=== PATIENT | female | born 1950 | race Caucasian/White ===

== ENCOUNTER 2019-12-30 08:53 | Outpatient (CLI) | payer MEDICARE, BC, SELFPAY ==
--- NOTE | 2019-12-30 09:04 | MM_ITS ---
WS: [id number] BILATERAL SCREENING DIGITAL MAMMOGRAM WITH CAD HISTORY: SCREENING COMPARISON: 12/11/2017, 11/10/2016 Bilateral CC and MLO views submitted. Computer aided detection analyzed. Breast composition: The breasts are heterogeneously dense, which may obscure small masses. No suspici ous masses, microcalcifications or architectural distortion. Numerous benign-appearing calcifications within each breast. No change in the overall parenchymal pattern. MM/[place] [id number] IMPRESSION: BI-RADS: 2-Benign FOLLOW UP: 1 Year Follow-up
== END 2019-12-30 08:54 | disposition home or self-care (01) ==
LOC: RADSHAW 09:00
PROVIDERS: Family Provider Family Medicine; PCP Family Medicine; Visit Provider Family Medicine
DX: Z12.31 Encounter for screening mammogram for malignant neoplasm of breast (principal)
CPT/HCPCS: 77067

== ENCOUNTER 2020-04-03 08:22 | Emergency (ER) | payer MEDICARE, BC, SELFPAY ==
[2020-04-03 08:23] VITALS: PULSE 94; RESP 22; TEMP 36.6; O2SAT 95; BMI 33.6
--- NOTE | 2020-04-03 08:32 | W.ED.SOB ---
HPI - SOB/Dyspnea General: Chief Complaint: Shortness of Breath/Dyspnea Stated Complaint: SOB Time Seen by Provider: 04/03/20 08:26 Source: patient Mode of arrival: ambulatory Limitations: no limitations History of Present Illness: HPI Narrative: Patient is a 70-year-old female presents to ED today with a complaint of shortness of breath. Patient initially began noticing shortness of breath approximately 2 weeks ago. She was seen at urgent care and was told that she most likely has COPD. She was placed on albuterol inhalers and steroids. Patient tells me she was improving on these medications however this morning woke up and felt very short of breath. She returned to urgent care where she was promptly referred to the emergency department for further evaluation. Patient tells me she has had a cough throughout the day that seems to worsen at night-cough is mainly nonproductive. She has not been running fevers. Patient is a former smoker and quit in 1999 (smoked for 30 years prior to that). Patient is not having any chest pains. Denies lower extremity swelling or pain. Denies orthopnea or PND. MD elicited complaint: shortness of breath Pertinent past history: COPD Onset (ago): day(s) Timing: constant Severity: moderate Exacerbating factors: exertion Relieving factors: rest Associated symptoms: Reports chest congestion; Deny abdominal pain, chest pain, fever(s), hemoptysis, lightheadedness, nausea, orthopnea, palpitations, syncope or vomiting Review of Systems General: Reports: 10 or more systems reviewed and unremarkable except in HPI and below Const: Denies: fever(s) or chills Eyes: Denies: change in vision, blurry vision, photophobia, floaters or seeing flashes ENMT: Denies: throat pain, enlarged tonsils or odynophagia Card: Reports: dyspnea on exertion; Denies: chest pain, palpitations, irregular heart rhythm, edema, swelling of feet/ankles, lightheadedness, syncope, pre-syncope, orthopnea, leg pain with exertion or acrocyanosis Resp: Reports: dyspnea, non-productive cough and chest congestion; Denies: productive cough or hemoptysis GI: Denies: abdominal pain, nausea, vomiting or diarrhea : Denies: flank pain, difficulty voiding, dysuria, urinary frequency or urinary urgency Musc: Denies: neck pain or back pain Skin/Breast: Denies: rash Neuro: Denies: headache(s), numbness in extremities, weakness in extremities or sensory changes PFSH ED PFSH: Social History Smoking and tobacco status: former smoker Physical Exam Const: COMMON NORMALS: average body habitus, patient oriented x3, no limitations, healthy appearing, alert and well nourished GENERAL APPEARANCE: cooperative and in distress (hyperventilating ) ORIENTATION/CONSCIOUSNESS: Yes oriented to person, Yes oriented to place and Yes oriented to time HENMT: COMMON NORMALS: normocephalic and atraumatic HEAD & SCALP: normocephalic and atraumatic Neck/C-Spine: COMMON NORMALS: full ROM, no lymphadenopathy and no meningeal signs Chest: COMMONS NORMALS: normal inspection of the chest and normal palpation of entire chest wall Resp: COMMON NORMALS: clear to auscultation bilaterally EFFORT & INSPECTION: Yes tachypneic AUSCULTATION: clear to auscultation bilaterally Cardio: COMMON NORMALS: regular rate and regular rhythm RATE: regular rate RHYTHM: regular rhythm GI: COMMON NORMALS: Normal to inspection, nondistended, normoactive bowel sounds present, Soft to palpation, non-tender, No hepatosplenomegaly present and no masses PALPATION: Yes Soft to palpation and Yes No hepatosplenomegaly present Extremity: COMMON NORMALS: normal to inspection, capillary refill normal, no joint enlargement, no clubbing, cyanosis or edema, no calf tenderness and no pedal edema Neuro: FLORIAN COMA SCALE: document GCS findings [place] coma scale eye opening: Spontaneous Florian coma scale verbal response: Orientated Florian coma scale motor response: Obey commands [place] coma scale total score: 15 COMMON NORMALS: patient oriented x3, CN's II-XII intact bilaterally, moves all extremities, no focal motor deficits, no sensory deficits noted and gait normal SENSORIUM/ORIENTATION: Yes alert, Yes oriented to person, Yes oriented to place and Yes oriented to time MENINGEAL SIGNS: Yes no meningeal signs Skin: COMMON NORMALS: no rashes or lesions noted GENERAL SKIN EXAM: no rashes or lesions noted Course Vital Signs: Vital signs: Vital Signs Temperature 97.8 F 04/03/20 08:23 Pulse Rate 78 04/03/20 10:19 Respiratory Rate 16 04/03/20 10:19 Blood Pressure 146/70 04/03/20 10:19 Pulse Oximetry 99 04/03/20 10:19 MDM - SOB/Dyspnea MDM Narrative: Medical decision making narrative: pt appears much better after IV solu-medrol, ativan, and a duo-nub treatment; labs are non-concerning at this time; CXR normal; ABG showing alkalosis from her hyperventilating; she is resting now in NAD with normal even respirations and no distress; I suspect majority of this was anxiety related although could have some worsening of possible COPD although she has never been officially diagnosed with this; will place her on steroids/abx and she can continue her albuterol; recommend close and prompt follow up with her PCP; return to ED precautions given Lab Data: Labs: Lab Results 04/03/20 04/03/20 04/03/20 Range/Units 08:35 08:35 08:49 WBC 12.1 H (4.0-10.0) 10^3/ uL RBC 4.32 (4.1-5.3) 10^6/u L Hgb 12.8 (11.5-15.3) g/dL Hct 39.7 (37.0-47.0) % MCV 91.9 (81-99) fL MCH 29.6 (28.0-34.0) pg MCHC 32.2 (30.0-36.0) g/dL RDW 13.7 (12.1-15.1) % Plt Count 326 (130-400) 10^3/c mm MPV 10.0 (7.4-10.4) fL Neut % (Auto) 66.4 % Lymph % (Auto) 16.3 % Gilchrist % (Auto) 7.0 % Eos % (Auto) 9.4 % Baso % (Auto) 0.7 % Neut # (Auto) 8.0 H (1.8-7.7) 10^3/u L Lymph # (Auto) 2.0 (0.8-4.8) 10^3/u L Gilchrist # (Auto) 0.8 (0.2-0.9) 10^3/u L Eos # (Auto) 1.1 H (0.0-0.8) 10^3/u L Baso # (Auto) 0.1 (0.0-0.1) 10^3/u L Nucleated RBC % (a uto) 0 % Nucleated RBCs # 0.0 /100WBC Specimen Type Arterial Sample Site Radial, left ABG pH 7.63 H* (7.35-7.45) ABG pCO2 20.9 L (35-45) mmHg ABG pO2 88.6 (80.0-100.0) mmH g ABG HCO3 21.9 L (22-26) mmol/L ABG O2 Saturation 97.3 ABG Base Excess 2.6 H (-2.0-2.0) mmol/ L Toñito Test Pos A-a O2 Gradient 30.0 H (5-10) mmHg Hematocrit 39.7 (37-47) % Hgb O2 Saturation 96.5 (95-100) % Carboxyhemoglobin 0.0 L (0.4-20.1) %THgb Methemoglobin 0.8 (0.4-1.5) % Total Hemoglobin 13.0 (12-16) g/dL Ionized Calcium 1.1 (1.1-1.4) mmol/L O2 Delivery Device None FiO2 21.0 % Front End Loader Operator ID ed Sodium 142 145.0 H (136-145) mmol/L Potassium 3.6 3.4 L (3.5-5.1) mmol/L Chloride 106 (98-107) mmol/L Carbon Dioxide 24 (22-29) mmol/L Anion Gap 15.6 (5-19) BUN 14 (8-23) mg/dL Creatinine 1.0 H (0.5-0.9) mg/dL Glucose 83 100.0 (65-115) mg/dL Calculated Osmolal ity 289 (285-295) mOsm/k g Calcium 9.4 (8.5-10.5) mg/dL Total Bilirubin 0.7 (0.15-1.2) mg/dL AST 20 (0-32) U/L ALT 17 (0-33) U/L Alkaline Phosphata se 79 (35-105) IU/L Total Protein 6.7 (6.6-8.7) g/dL Albumin 4.6 (3.5-5.2) g/dL Globulin 2.1 (1.3-4.6) g/dL Imaging Data^: CXR: Radiologist's impression: [address] [address] XRay Report Signed Patient: Paula Patel Unit #: [id number] : 1950 Age/Sex: 70 / F ADM Date: 04/03/20 Loc: ER Room/Bed: Attending Dr: Ordering Provider/Ordering MD: Jelena Jones Date of Service: 04/03/20 Procedure(s): XR chest 1V portable [id number] Accession Number(s): [id number] Report Number: [id number] PROCEDURE INFORMATION: Exam: XR Chest, 1 View Exam date and time: 04/03/2020 9:06 AM Age: 70 years old Clinical indication: Cough and shortness of breath; Additional info: Chest pain, SOB, cough x 3 weeks TECHNIQUE: Imaging protocol: XR of the chest Views: 1 view. COMPARISON: No relevant prior studies available. FINDINGS: Lungs: Lungs are well aerated without a focal area of consolidation. Pleural space: Unremarkable. No pleural effusion. No pneumothorax. Heart/Mediastinum: Unremarkable. No cardiomegaly. Bones/joints: Prior surgical fixation of the caudal aspect of the cervical spine. XR/XR chest 1V portable [id number] IMPRESSION: Lungs are well aerated without a focal area of consolidation. Dictated By: Bang Whelan MD Signed By: Bang Whelan MD Signed Date/Time: 04/03/20945 DD/ 4 Discharge Plan Discharge Patient Disposition: Home, Self-Care Clinical Impression: Hyperventilation, Bronchitis Condition: Stable Prescriptions: New Levaquin 750 mg tablet 750 mg PO DAILY 5 Days Qty: 5 RF: 0 Medrol (Zander) 4 mg tablets,dose pack See Rx Instructions .ROUTE .COMPLEX Qty: 21 RF: 0 No Action estradiol 1 mg Tablet 1 mg PO DAILY RF: 0 omeprazole 20 mg capsule,delayed release(DR/EC) 20 mg PO DAILY RF: 0 escitalopram oxalate 10 mg Tablet 10 mg PO DAILY RF: 0 Detrol 1 mg Tablet 1 mg PO DAILY RF: 0 Discharge Orders: Discharge Order (Routine); Ordered 04/03/20 Ordered By: Jelena Jones Referrals: Brittany Anderson MD [Primary Care Provider] - Activity Restrictions/Additional Instructions: As discussed please follow up with primary care as soon as possible for re-evaluation. Continue albuterol inhaler as prescribed. May return to the ED for any worsening symptoms, chest pain, difficulty breathing, fevers, or any other concerns you may have. Discharge Date/Time: 04/03/20 10:20 Coding Level of Care Code ED Rate And Cost Analyst for Tomas Ulloa Exam Comprehensive
[2020-04-03 08:38] VITALS: PULSE 76; RESP 20; O2SAT 97
[2020-04-03] MEDS: ipratropium-albuterol 3 mL Neb INHALATION (08:38)
[2020-04-03 08:43] VITALS: PULSE 78
[2020-04-03 08:49] LABS: Basophils # 0.1 10^3/uL (0.0-0.1); Basophils % 0.7 %; Eosinophils # 1.1 10^3/uL (0.0-0.8); Eosinophils % 9.4 %; Hematocrit 39.7 % (37.0-47.0); Hemoglobin 12.8 g/dL (11.5-15.3); Lymphocytes % 16.3 %; Mean Corpuscular HGB Conc 32.2 g/dL (30.0-36.0); Mean Corpuscular Hemoglobin 29.6 pg (28.0-34.0); Mean Corpuscular Volume 91.9 fL (81-99); Monocytes # 0.8 10^3/uL (0.2-0.9); Neutrophils % 66.4 %; Nucleated Red Blood Cells % 0 %; Platelet Count 326 10^3/cmm (130-400); Red Blood Count 4.32 10^6/uL (4.1-5.3); Red Cell Distribution Width 13.7 % (12.1-15.1); White Blood Count 12.1 10^3/uL (4.0-10.0)
[2020-04-03] MEDS: LORazepam 2 mg/mL INJ 1 mL 0.5 MG IVP (08:57)
[2020-04-03 09:00] LABS: ABG PCO2 20.9 mmHg (35-45); ABG PH Result 7.63 (7.35-7.45); Arterial Blood Gas Hematocrit 39.7 % (37-47); Base Excess ABG 2.6 mmol/L (-2.0-2.0); Blood Gas Allen Test Pos; Blood Gas Sample Site Radial, left; Blood Gas Sample Type Arterial; HCO3 ABG 21.9 mmol/L (22-26); HGB O2 Sat 96.5 % (95-100); Ionized Calcium Level - ABG 1.1 mmol/L (1.1-1.4); Methemoglobin 0.8 % (0.4-1.5); Oxygen Saturation ABG 97.3; PO2 ABG 88.6 mmHg (80.0-100.0); Potassium Level - ABG 3.4 mmol/L (3.5-5.0)
[2020-04-03 09:02] LABS: Alanine Aminotransferase 17 U/L (0-33); Albumin Level 4.6 g/dL (3.5-5.2); Alkaline Phosphatase 79 IU/L (35-105); Anion Gap 15.6 (5-19); Aspartate Amino Transferase 20 U/L (0-32); Blood Urea Nitrogen 14 mg/dL (8-23); Calcium 9.4 mg/dL (8.5-10.5); Carbon Dioxide 24 mmol/L (22-29); Chloride 106 mmol/L (98-107); Globulin 2.1 g/dL (1.3-4.6); Glucose 83 mg/dL (65-115); Osmolality Calculated 289 mOsm/kg (285-295); Potassium 3.6 mmol/L (3.5-5.1); Sodium 142 mmol/L (136-145); Total Bilirubin 0.7 mg/dL (0.15-1.2); Total Protein 6.7 g/dL (6.6-8.7)
[2020-04-03 10:19] VITALS: BP 146/70; PULSE 78; RESP 16; O2SAT 99
== END 2020-04-03 10:20 | disposition home or self-care (01) ==
PROVIDERS: Emergency Provider Physician Assistant; Family Provider Family Medicine; PCP Family Medicine
DX: J40 Bronchitis, not specified as acute or chronic (principal); R06.4 Hyperventilation; Z87.891 Personal history of nicotine dependence
CPT/HCPCS: 12345; 36600; 71045; 80051; 80053; 82810; 83986; 85025; 94640; 96374; 96375; 99282; 99283; J2060; J2930

== ENCOUNTER 2021-01-22 17:12 | Emergency (ER) | payer MEDICARE, BC, SELFPAY ==
[2021-01-22 17:23] VITALS: BP 89/61; PULSE 96; RESP 18; TEMP 36.7; O2SAT 97; BMI 30.9
--- NOTE | 2021-01-22 18:31 | ECG_ITS ---
[facility] Test Date: 2021-01-22 Pat Name: Paula Patel Department: Room: Gender: Female Fruit Sprayer: : 1950 Requested By: Kathrin Khan I Order Number: [id number] Reading MD: MARGAUX HERNÁNDEZ Measurements Intervals [place] Rate: 96 P: 60 NE: 162 QRS: 16 QRSD: 81 T: 18 QT: 366 QTc: 463 Interpretive Statements SINUS RHYTHM POSSIBLE LEFT ATRIAL ENLARGEMENT [-0.1mV P WAVE IN V1/V2] NONSPECIFIC T-WAVE ABNORMALITY No previous ECG available for comparison Electronically Signed On 01-22-2021 20:16:33 CDT by MARGAUX HERNÁNDEZ [id number] f
--- NOTE | 2021-01-22 18:31 | XR_ITS ---
WS: [id number] PORTABLE CHEST HISTORY: Acute onset chest pain. COMPARISON: 04/03/2020 Lungs are clear and well expanded. No pleural effusion or pneumothorax. Cardiac size: Normal. Mediastinum/Aorta: Normal mediastinum. Prior anterior cervical fusion. XR/XR chest 1V portable [id number] IMPRESSION: Unremarkable portable chest.
--- NOTE | 2021-01-22 18:32 | ED_ITS ---
HPI - Chest Pain General: Chief Complaint: Chest Pain Stated Complaint: CHEST PRESSURE, DIFF BREATHING, SENT BY PCP Time Seen by Provider: 01/22/21 18:20 Source: patient and family () Mode of arrival: ambulatory Limitations: no limitations History of Present Illness: HPI narrative: Chest pain since 10 AM this morning. Pain radiates to her back. She has associated palpitations. Pain started at rest. She went to see her PCP who asked her to come to the ED to be evaluated. She denies nausea, diaphoresis, dizziness, headache, vomiting. MD complaint: chest pain Onset (ago): hour(s) (8) Timing of current episode: constant Prior episodes: No Onset: during rest Pain location: left chest Pain radiation: back Severity: moderate Quality: aching Relieving factors: nothing Exacerbating factors: nothing Associated symptoms: Deny abdominal pain, diaphoresis, dyspnea, fever(s), leg edema, nausea, palpitations, sense of impending doom, syncope or vomiting Treatment prior to arrival: none Review of Systems General: Reports: 10 or more systems reviewed and unremarkable except in HPI and below Const: Denies: fever(s) or diaphoresis Card: Denies: palpitations or syncope Resp: Denies: dyspnea GI: Denies: abdominal pain, nausea or vomiting [facility] ED PFSH: Social History (Reviewed 01/22/21 @ 22:39 by Kathrin Khan MD, [facility]) Smoking and tobacco status: former smoker Physical Exam Const: COMMON NORMALS: no acute distress, average body habitus, patient oriented x3, no limitations, healthy appearing, alert and well nourished HENMT: COMMON NORMALS: normocephalic, atraumatic and moist oral mucous membranes HEAD & SCALP: normocephalic and atraumatic Neck/C-Spine: COMMON NORMALS: no meningeal signs and no JVD Resp: COMMON NORMALS: normal respiratory effort, No retractions, No use of accessory muscles, clear to auscultation bilaterally and percussion normal AUSCULTATION: clear to auscultation bilaterally PERCUSSION: percussion normal Cardio: COMMON NORMALS: no JVD, regular rate, regular rhythm, S1 normal heart sound present, S2 normal heart sound present, No gallops present (Cardio), No clicks present (Cardio), No murmurs present (Cardio), No rub (Cardio) and Peripheral pulses 2+ throughout RATE: regular rate RHYTHM: regular rhythm HEART SOUNDS: S1 normal heart sound present and S2 normal heart sound present PERIPHERAL PULSES: Peripheral pulses 2+ throughout GI: COMMON NORMALS: Normal to inspection, nondistended, normoactive bowel sounds present, Soft to palpation, non-tender, No hepatosplenomegaly present, no masses and no bruits PALPATION: Yes Soft to palpation and Yes No hepatosplenomegaly present Extremity: COMMON NORMALS: normal to inspection, full ROM, capillary refill normal, no calf tenderness and no pedal edema Neuro: COMMON NORMALS: patient oriented x3 SENSORIUM/ORIENTATION: Yes alert MENINGEAL SIGNS: Yes no meningeal signs Skin: COMMON NORMALS: no rashes or lesions noted, no wounds, turgor normal, no jaundice, no petechiae and no mottling GENERAL SKIN EXAM: no rashes or lesions noted and turgor normal Course Reevaluation(s): Reevaluation #1: Discussed her lab and imaging findings with her - negative for acute findings. She has leucocytosis but she states that she is currently being treated for a UTI and she believes that the elevated WBC is due to this. She will be discharged home with no new orders. She voiced understanding and all questions answered. Time: 21:34 Vital Signs: Vital signs: Vital Signs Temperature 98.2 F 01/22/21 21:49 Pulse Rate 63 01/22/21 21:49 Respiratory Rate 18 01/22/21 21:49 Blood Pressure 111/56 01/22/21 21:49 Pulse Oximetry 93 01/22/21 21:49 MDM - Chest Pain MDM Narrative: Medical decision making narrative: 70 year old female with chest pain. Evaluation in the ED was unremarkable. She has negative HS troponin x 2 and is discharged home with no new orders. She is to f/u with her PCP. Medical Records: Attestation: I reviewed the patient's medical records. Lab Data: Attestation: I reviewed the patient's lab results. Labs: Lab Results 01/22/21 01/22/21 01/22/21 Range/Units 18:55 18:55 18:55 WBC 19.2 H (4.0-10.0) 10^3/ uL RBC 4.47 (4.1-5.3) 10^6/u L Hgb 13.4 (11.5-15.3) g/dL Hct 41.3 (37.0-47.0) % MCV 92.4 (81-99) fL MCH 30.0 (28.0-34.0) pg MCHC 32.4 (30.0-36.0) g/dL RDW 13.2 (12.1-15.1) % Plt Count 276 (130-400) 10^3/c mm MPV 11.0 H (7.4-10.4) fL Neut % (Auto) 90.9 % Lymph % (Auto) 4.9 % Ponce % (Auto) 2.9 % Eos % (Auto) 0.5 % Baso % (Auto) 0.4 % Neut # (Auto) 17.47 H (1.8-7.7) 10^3/u L Lymph # (Auto) 1.0 (0.8-4.8) 10^3/u L [place]once # (Auto) 0.6 (0.2-0.9) 10^3/u L Eos # (Auto) 0.1 (0.0-0.8) 10^3/u L Baso # (Auto) 0.1 (0.0-0.1) 10^3/u L Nucleated RBC % (a uto) 0 % Nucleated RBCs # 0.0 /100WBC Sodium 135 L (136-145) mmol/L Potassium 3.8 (3.5-5.1) mmol/L Chloride 97 L (98-107) mmol/L Carbon Dioxide 24 (22-29) mmol/L Anion Gap 17.8 (5-19) BUN 14 (8-23) mg/dL Creatinine 1.0 H (0.5-0.9) mg/dL GFR Calculation Not Reportable Glucose 126 H (65-115) mg/dL Calculated Osmolal ity 282 L (285-295) mOsm/k g Calcium 9.3 (8.5-10.5) mg/dL Total Bilirubin 1.3 H (0.15-1.2) mg/dL AST 15 (0-32) U/L ALT 14 (0-33) U/L Alkaline Phosphata se 64 (35-105) IU/L Troponin T Baselin e 7 (0-10) ng/L Troponin T 120 Min [place] (0-10) ng/L Delta Troponin T (0-10) ABS# NT-Pro-B Natriuret Pep 522 H (0-125) pg/mL Total Protein 7.0 (6.6-8.7) g/dL Albumin 4.6 (3.5-5.2) g/dL Globulin 2.4 (1.3-4.6) g/dL Lipase 9 L (13-60) U/L 01/22/21 Range/Units 20:21 WBC (4.0-10.0) 10^3/ uL RBC (4.1-5.3) 10^6/u L Hgb (11.5-15.3) g/dL Hct (37.0-47.0) % MCV (81-99) fL MCH (28.0-34.0) pg MCHC (30.0-36.0) g/dL RDW (12.1-15.1) % Plt Count (130-400) 10^3/c mm MPV (7.4-10.4) fL Neut % (Auto) % Lymph % (Auto) % [place]once % (Auto) % Eos % (Auto) % Baso % (Auto) % Neut # (Auto) (1.8-7.7) 10^3/u L Lymph # (Auto) (0.8-4.8) 10^3/u L Ponce # (Auto) (0.2-0.9) 10^3/u L Eos # (Auto) (0.0-0.8) 10^3/u L Baso # (Auto) (0.0-0.1) 10^3/u L Nucleated RBC % (a uto) % Nucleated RBCs # /100WBC Sodium (136-145) mmol/L Potassium (3.5-5.1) mmol/L Chloride (98-107) mmol/L Carbon Dioxide (22-29) mmol/L Anion Gap (5-19) BUN (8-23) mg/dL Creatinine (0.5-0.9) mg/dL GFR Calculation Glucose (65-115) mg/dL Calculated Osmolal ity (285-295) mOsm/k g Calcium (8.5-10.5) mg/dL Total Bilirubin (0.15-1.2) mg/dL AST (0-32) U/L ALT (0-33) U/L Alkaline Phosphata se (35-105) IU/L Troponin T Baselin e (0-10) ng/L Troponin T 120 Min [place] 7.47 (0-10) ng/L Delta Troponin T 0.47 (0-10) ABS# NT-Pro-B Natriuret Pep (0-125) pg/mL Total Protein (6.6-8.7) g/dL Albumin (3.5-5.2) g/dL Globulin (1.3-4.6) g/dL Lipase (13-60) U/L Imaging Data^: CTA Chest: Attestation: I personally reviewed and interpreted this imaging study as follows: Radiologist's impression: [employer] [address] [address] Scan Report Signed Patient: Paula Patel #: [id number] : 1950Acc#:[id number] Age/Sex: 70 / FADM Date: 01/22/21 [facility] Attending Dr: Ordering Provider/Ordering MD: Kathrin Khan MD, [facility] Date of Service: 01/22/21 Procedure(s): CT angio chest PE protcl [id number] Accession Number(s): [id number] Report Number: [id number] PROCEDURE INFORMATION: Exam: CT Angiography Chest With Contrast Exam date and time: 01/22/2021 7:52 PM Age: 70 years old Clinical indication: Pain; Shortness of breath; Chest pressure; Additional info: SOB, tachycardia, chest pain TECHNIQUE: Imaging protocol: Computed tomographic angiography of the chest with contrast. 3D rendering (Not supervised by radiologist): MIP and/or 3D reconstructed images were created by the technologist. Radiation optimization: All CT scans at this facility use at least one of these dose optimization techniques: automated exposure control; mA and/or kV adjustment per patient size (includes targeted exams where dose is matched to clinical indication); or iterative reconstruction. Contrast material: VISI 320; Contrast volume: 77 ml; Contrast route: INTRAVENOUS (IV); COMPARISON: CT Chest/Abdomen/Pelvis wo IV 08/30/2016 10:28 PM RADIATION DOSE METRICS: Total DLP (mGy-cm): 595.39 FINDINGS: There are degenerative changes of the thoracic spine. There is some atelectasis within the lung bases. There is no focal consolidation. There is no pleural effusion. There is no pneumothorax. There are no suspicious pulmonary nodules. The central airways are normal in caliber. The thyroid gland is unremarkable. There is no axillary adenopathy. There is no mediastinal adenopathy. There is no hilar adenopathy. Interrogation of the pulmonary arteries in multiple planes shows no evidence for pulmonary embolism. The aorta is normal in caliber with no evidence for aneurysm or dissection. The heart is normal in size. There is no evidence for right heart failure. The upper abdominal structures are unremarkable. CT/CT angio chest PE protcl [id number] IMPRESSION: 1. No evidence for pulmonary embolism. 2. No infiltrates. Radiation Dose CTDIVOL = (mGy): DLP = 595.39 (mGy-cm) Dictated By:Kash Scherer MD Signed By:Kash Schererigned Date/Time:01/22/212024 DD/ 22 EKG Data^: EKG 1: Attestation: I personally reviewed and interpreted this EKG as follows: EKG interpretation date: 01/22/21 EKG interpretation time: 17:22 Prior EKG tracings: not available for review Interpretation: sinus rhythm HR [address] changes. Discharge Plan Discharge Patient Disposition: Home Clinical Impression: Chest pain Qualifiers: Chest pain type: unspecified Qualified Code(s): R07.9 - Chest pain, unspecified Condition: Stable Prescriptions: Continued estradiol 1 mg Tablet 1 mg PO DAILY@0700 RF: 0 omeprazole 20 mg capsule,delayed release(DR/EC) 20 mg PO DAILY@0700 RF: 0 escitalopram oxalate 10 mg Tablet 10 mg PO DAILY@0700 RF: 0 tolterodine [Detrol] 1 mg Tablet 1 mg PO DAILY RF: 0 ascorbic acid (vitamin C) 500 mg Tablet 500 mg PO DAILY@0700 RF: 0 simvastatin 20 mg tablet 20 mg PO DAILY@0700 RF: 0 albuterol sulfate 90 mcg/actuation HFA aerosol inhaler See Rx Instructions .ROUTE .COMPLEX RF: 0 Vitamin B-12 1 tab PO DAILY@0700 RF: 0 nitrofurantoin 100 mg PO BID@0700,1900 RF: 0 vitamin E 1 tab PO DAILY@0700 RF: 0 Discharge Orders: Discharge ED (Routine); Ordered 01/22/21 Ordered By: Kathrin Khan Referrals: Orlando Christensen MD [Primary Care Provider] - 1-3 days Discharge Diet: Usual diet Discharge Activity: Increase activity as tolerated Patient Instructions: Chest Pain (ED) Activity Restrictions/Additional Instructions: Return for any new or worsening symptoms. Follow-up with your primary care provider within 3 days. Continue home medications. Complete your antibiotics for your urinary tract infection. Coding Level of Care Code ED Integrated Circuits Inspector for Tomas Ulloa
[2021-01-22 19:02] LABS: Basophils # 0.1 10^3/uL (0.0-0.1); Basophils % 0.4 %; Eosinophils # 0.1 10^3/uL (0.0-0.8); Eosinophils % 0.5 %; Hematocrit 41.3 % (37.0-47.0); Hemoglobin 13.4 g/dL (11.5-15.3); Lymphocytes % 4.9 %; Mean Corpuscular HGB Conc 32.4 g/dL (30.0-36.0); Mean Corpuscular Volume 92.4 fL (81-99); Monocytes # 0.6 10^3/uL (0.2-0.9); Monocytes % 2.9 %; Neutrophils # 17.47 10^3/uL (1.8-7.7); Neutrophils % 90.9 %; Nucleated Red Blood Cells % 0 %; Platelet Count 276 10^3/cmm (130-400); Red Blood Count 4.47 10^6/uL (4.1-5.3); Red Cell Distribution Width 13.2 % (12.1-15.1); White Blood Count 19.2 10^3/uL (4.0-10.0)
[2021-01-22] MEDS: aspirin 81 mg Chew Tablet 324 MG PO (19:05)
[2021-01-22 19:40] LABS: Troponin(5th) Baseline 7 ng/L (0-10)
[2021-01-22 19:46] LABS: Alanine Aminotransferase 14 U/L (0-33); Albumin Level 4.6 g/dL (3.5-5.2); Alkaline Phosphatase 64 IU/L (35-105); Anion Gap 17.8 (5-19); Aspartate Amino Transferase 15 U/L (0-32); Blood Urea Nitrogen 14 mg/dL (8-23); Calcium 9.3 mg/dL (8.5-10.5); Carbon Dioxide 24 mmol/L (22-29); Chloride 97 mmol/L (98-107); Globulin 2.4 g/dL (1.3-4.6); Glucose 126 mg/dL (65-115); Lipase 9 U/L (13-60); NT Pro B Type Natriuretic Pept 522 pg/mL (0-125); Osmolality Calculated 282 mOsm/kg (285-295); Potassium 3.8 mmol/L (3.5-5.1); Sodium 135 mmol/L (136-145); Total Bilirubin 1.3 mg/dL (0.15-1.2)
--- NOTE | 2021-01-22 19:49 | CTR_ITS ---
PROCEDURE INFORMATION: Exam: CT Angiography Chest With Contrast Exam date and time: 01/22/2021 7:52 PM Age: 70 years old Clinical indication: Pain; Shortness of breath; Chest pressure; Additional info: SOB, tachycardia, chest pain TECHNIQUE: Imaging protocol: Computed tomographic angiography of the chest with contrast. 3D rendering (Not supervised by radiologist): MIP and/or 3D reconstructed images were created by the technologist. Radiation optimization: All CT scans at this facility use at least one of these dose optimization techniques: automated exposure control; mA and/or kV adjustment per patient size (includes targeted exams where dose is matched to clinical indication); or iterative reconstruction. Contrast material: VISI 320; Contrast volume: 77 ml; Contrast route: INTRAVENOUS (IV); COMPARISON: CT Chest/Abdomen/Pelvis wo IV 08/30/2016 10:28 PM RADIATION DOSE METRICS: Total DLP (mGy-cm): 595.39 FINDINGS: There are degenerative changes of the thoracic spine. There is some atelectasis within the lung bases. There is no focal consolidation. There is no pleural effusion. There is no pneumothorax. There are no suspicious pulmonary nodules. The central airways are normal in caliber. The thyroid gland is unremarkable. There is no axillary adenopathy. There is no mediastinal adenopathy. There is no hilar adenopathy. Interrogation of the pulmonary arteries in multiple planes shows no evidence for pulmonary embolism. The aorta is normal in caliber with no evidence for aneurysm or dissection. The heart is normal in size. There is no evidence for right heart failure. The upper abdominal structures are unremarkable. CT/CT angio chest PE protcl [id number] IMPRESSION: 1. No evidence for pulmonary embolism. 2. No infiltrates. Radiation Dose CTDIVOL = (mGy): DLP = 595.39 (mGy-cm)
[2021-01-22] MEDS: iodixanol 320 mg/mL 100mL Btl IV (19:59)
[2021-01-22 21:04] LABS: Troponin 5 2HR 7.47 ng/L (0-10); Troponin 5 2HR Delta 0.47 ABS# (0-10)
[2021-01-22 21:49] VITALS: BP 111/56; PULSE 63; RESP 18; TEMP 36.8; O2SAT 93
== END 2021-01-22 21:50 | disposition home or self-care (01) ==
PROVIDERS: Emergency Provider Family Medicine; PCP Family Medicine
DX: R07.9 Chest pain, unspecified (principal); Z87.891 Personal history of nicotine dependence
CPT/HCPCS: 36415; 71045; 71275; 80053; 83690; 83880; 84484; 85025; 93005; 99284; Q9967

== ENCOUNTER → 2021-02-07 14:52 | Outpatient (BNVA) | payer MEDICARE, BC, SELFPAY | PROVIDERS: PCP Family Medicine; Referring Provider Family Medicine; Visit Provider Podiatrist Foot & Ankle Surgery | DX: M79.672 Pain in left foot (principal) | CPT/HCPCS: 73630 ==

== ENCOUNTER 2021-03-21 14:40 | Outpatient (CLI) | payer MEDICARE, BC, SELFPAY ==
--- NOTE | 2021-03-21 14:47 | MM_ITS ---
WS: [id number] BILATERAL DIGITAL SCREENING MAMMOGRAPHY WITH CAD CLINICAL INFORMATION: SCREENING HISTORY: Screening mammogram. No current complaints. COMPARISON: December 30, 2019 TECHNIQUE: Bilateral CC and MLO views. FINDINGS: The breasts are composed of heterogeneous fibroglandular density tissue, which can limit the detectio n of small underlying mass lesions. Punctate and lucent center calcifications. No suspicious mass, as ymmetry, calcifications, or architectural distortion. No evidence of malignancy. MM/[place] [id number] IMPRESSION: BI-RADS: 2-Benign FOLLOW UP: 1 Year Follow-up Recommend return to annual screening mammography.
== END 2021-03-21 14:41 | disposition home or self-care (01) ==
PROVIDERS: PCP Family Medicine; Visit Provider Family Medicine
DX: Z12.31 Encounter for screening mammogram for malignant neoplasm of breast (principal)
CPT/HCPCS: 77067

== ENCOUNTER 2022-01-20 14:30 | Emergency (ER) | payer MEDICARE, OTHER, SELFPAY ==
[2022-01-20 14:40] VITALS: PULSE 96; RESP 18; TEMP 36.6; O2SAT 97; BMI 30.1
--- NOTE | 2022-01-20 14:48 | PC.NURSE ---
Pt ambulatory in triage and ambulatory with slow gate to room from triage.
--- NOTE | 2022-01-20 15:08 | XR_ITS ---
WS: [email or web address] Exam: XR lumbar spine 2-3V* [id number] Date/Time of Exam: 01/20/2022 3:11 PM Reason For Exam: lumbar back pain after fall from horse No acute fracture or dislocation. Disc degeneration at L4-5 and L5-S1. 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 Osteo penia. Mild levoscoliosis. Old bilateral pelvic fractures. XR/XR lumbar spine 2-3V* [id number] IMPRESSION: 1. No fracture or dislocation. 2. Degenerative changes and osteopenia. Mild scoliosis.
--- NOTE | 2022-01-20 15:08 | XR_ITS ---
WS: [id number] Exam: XR hip BI 3-4V wo/w pel [id number] Date/Time of Exam: 01/20/2022 3:11 PM Reason For Exam: bilateral hip and pelvic pain after fall off horse The bilateral hips are intact without fracture or dislocation. Moderate DJD of both hips. Old fractur es of the superior and inferior bilateral pubic rami. DJD of the SI joints. XR/XR hip BI 3-4V wo/w pel [id number] IMPRESSION: 1. No acute hip fracture or dislocation. 2. Old bilateral pelvic fractures. Degenerative changes.
--- NOTE | 2022-01-20 15:08 | XR_ITS ---
WS: [id number] Exam: XR sacrum coccyx min 2V [id number] Date/Time of Exam: 01/20/2022 3:11 PM Reason For Exam: fall from horse No acute fracture noted. There are old fractures of the superior and inferior pubic rami bilaterally. The hips are intact. DJD of the SI joints. XR/XR sacrum coccyx min 2V [id number] IMPRESSION: 1. No acute sacrococcygeal fracture or dislocation. 2. Old bilateral pelvic fractures.
--- NOTE | 2022-01-20 15:09 | ED_ITS ---
HPI - Fall General: Chief Complaint: Fall Stated Complaint: thrown by horse, trouble walking Time Seen by Provider: 01/20/22 14:51 History of Present Illness: Patient is a 71-year-old female comes to the ED with bilateral hip pain after fall off horse. Patient rides and trains horses. She was wearing a helmet today. She said one of their young horses started bucking and she fell off horse. Patient says she hit the ground with her right hip. Denies any head trauma or loss of consciousness. She is now having bilateral hip and pelvic pain that she rates a 7 out of 10. Most of her pain is on the left side and it radiates down into her thigh. Pain worsens when she is up and ambulating. She has not taken anything for pain before coming to the ED. Associated symptoms-after fall: Denies abdominal pain, chest pain, headache(s), hematuria or neck pain Review of Systems Const: Denies: fever(s), chills or fatigue Eyes: Denies: change in vision or eye discomfort ENMT: Denies: throat pain, odynophagia, nasal discharge or nasal congestion Card: Denies: chest pain, palpitations, edema, swelling of feet/ankles, dyspnea on exertion or orthopnea Resp: Denies: dyspnea, productive cough or non-productive cough GI: Denies: abdominal pain, nausea, vomiting, diarrhea, constipation or hematochezia : Denies: flank pain, dysuria or hematuria Musc: Denies: neck pain, back pain or extremity swelling Skin/Breast: Denies: rash or new lesions Neuro: Denies: headache(s), numbness in extremities or weakness in extremities [facility] ED PFSH: Medical History No pertinent family history Pelvic fracture Social History Smoking and tobacco status: former smoker Physical Exam Const: COMMON NORMALS: no acute distress, patient oriented x3, healthy appearing and alert GENERAL APPEARANCE: cooperative and comfortable HENMT: COMMON NORMALS: normocephalic HEAD & SCALP: normocephalic MOUTH: Normal oral and palatal mucosa present THROAT: posterior oropharynx normal and uvula midline Neck/C-Spine: COMMON NORMALS: supple GENERAL: Yes normal visual inspection Resp: COMMON NORMALS: normal respiratory effort, No retractions, No use of accessory muscles and clear to auscultation bilaterally AUSCULTATION: clear to auscultation bilaterally Cardio: COMMON NORMALS: regular rate, regular rhythm, S1 normal heart sound present, S2 normal heart sound present, No gallops present (Cardio), No clicks present (Cardio), No murmurs present (Cardio) and Peripheral pulses 2+ throughout RATE: regular rate RHYTHM: regular rhythm HEART SOUNDS: S1 normal heart sound present and S2 normal heart sound present PERIPHERAL PULSES: Peripheral pulses 2+ throughout GI: COMMON NORMALS: Normal to inspection, nondistended, normoactive bowel sounds present, Soft to palpation, non-tender and no masses PALPATION: Yes Soft to palpation : COMMON NORMALS: Yes no CVA tenderness BLADDER/KIDNEY EXAM: Yes no CVA tenderness Back/Pelvis: COMMON NORMALS: no CVA tenderness Extremity: COMMON NORMALS: normal to inspection and full ROM Neuro: COMMON NORMALS: patient oriented x3 and moves all extremities SENSORIUM/ORIENTATION: Yes alert Skin: GENERAL SKIN EXAM: dry skin Course Vital Signs: Vital signs: Vital Signs Temperature 98 F 01/20/22 14:40 Pulse Rate 96 01/20/22 14:40 Respiratory Rate 18 01/20/22 14:40 Pulse Oximetry 97 01/20/22 14:40 MDM - Fall Medical Decision Making Patient is a 71-year-old female comes to the ED after having a fall off horse. Patient was wearing a helmet denies any head trauma or loss of consciousness. She is not on a blood thinner. Her main complaint is bilateral hip pain and lower back pain. Vitals are stable. Exam is benign. X-ray of bilateral hip, lumbar spine and sacrum and coccyx were all negative and showed no acute fractures or dislocations. Patient diagnosed with injury of hip which discharged home with muscle relaxer and pain med. She was told to follow-up with PCP in the next 7 to 10 days for evaluation. Return ED precautions given. Patient is tender with plan Lab Data Radiology Impressions Hip/Pelvis X-Ray 01/20/22 15:08 IMPRESSION: 1. No acute hip fracture or dislocation. 2. Old bilateral pelvic fractures. Degenerative changes. Lumbar Spine X-Ray 01/20/22 15:08 IMPRESSION: 1. No fracture or dislocation. 2. Degenerative changes and osteopenia. Mild scoliosis. Sacrum and Coccyx X-Ray 01/20/22 15:08 IMPRESSION: 1. No acute sacrococcygeal fracture or dislocation. 2. Old bilateral pelvic fractures. Discharge Plan Discharge Patient Disposition: Home Clinical Impression: Injury of hip Qualifiers: Encounter type: initial encounter Laterality: unspecified laterality Qualified Code(s): S79.919A - Unspecified injury of unspecified hip, initial encounter Condition: Stable Prescriptions: New methocarbamol 750 mg tablet 750 mg PO Q8H PRN (Reason: Muscle spasms and pain) Qty: 20 0RF ibuprofen 800 mg tablet 800 mg PO Q8H PRN (Reason: pain) Qty: 20 0RF No Action estradiol 1 mg Tablet 1 mg PO DAILY@0700 0RF omeprazole 20 mg capsule,delayed release(DR/EC) 20 mg PO DAILY@0700 0RF escitalopram oxalate 10 mg Tablet 10 mg PO DAILY@0700 0RF tolterodine [Detrol] 1 mg Tablet 1 mg PO DAILY 0RF ascorbic acid (vitamin C) 500 mg Tablet 500 mg PO DAILY@0700 0RF simvastatin 20 mg tablet 20 mg PO DAILY@0700 0RF albuterol sulfate 90 mcg/actuation HFA aerosol inhaler See Rx Instructions .ROUTE .COMPLEX 0RF Rx Instructions: inhaled, use as directed Vitamin B-12 1 tab PO DAILY@0700 0RF nitrofurantoin 100 mg PO BID@0700,1900 0RF vitamin E 1 tab PO DAILY@0700 0RF Discharge Orders: Discharge ED (Routine); Ordered 01/20/22 Ordered By: Mario Jewell Referrals: Orlando Christensen MD [Primary Care Provider] - Discharge Diet: Regular Discharge Activity: Increase activity as tolerated Patient Instructions: Opioid Safety Activity Restrictions/Additional Instructions: Follow-up with medical provider as directed in the next 5-7 days for reevaluation. Take medications as prescribed. Apply cold pack on sore area of hip and back to help with symptoms. Rest and limit activity for the next several days to allow for healing. Return to the ER or your medical provider if condition worsens. Please read and understand discharge instructions. Thank you for choosing [facility] for your healthcare needs today. Please realize this is an emergency room and that we are providing you with a medical screening exam and this may not be complete and all inclusive of all the testing and or work up that you may need to determine your ailment or severity of your illness. It is very important that you follow up as instructed or that you return to the Emergency Department should you have concerns or if your condition changes or worsens in any way. Coding Level of Care Code ED Sanding Machine Buffer for Tomas Ulloa Exam Comprehensive
[2022-01-20] MEDS: HYDROcodone-acetaminophen 7.5-325 mg Tablet 1 TAB PO (15:13)
== END 2022-01-20 17:19 | disposition home or self-care (01) ==
PROVIDERS: Emergency Provider Physician Assistant; PCP Family Medicine
DX: M25.551 Pain in right hip (principal); S79.912A Unspecified injury of left hip, initial encounter; S79.911A Unspecified injury of right hip, initial encounter; V80.010A Animal-rider injured by fall from or being thrown from horse in noncollision accident, initial encounter; M54.50 Low back pain, unspecified; Z87.891 Personal history of nicotine dependence
CPT/HCPCS: 72100; 72220; 73522; 99283

== ENCOUNTER 2022-01-24 08:50 | Outpatient (CLI) | payer MEDICARE, OTHER, SELFPAY ==
--- NOTE | 2022-01-24 09:04 | XR_ITS ---
WS: [id number] DEXA (DUAL ENERGY X-RAY ABSORPTIOMETRY) Bone mineral density was performed using a [employer] machine. HISTORY: HYPERLIPIDEMIA COMPARISON: None available. Lumbar spine BMD (L1-L4): 1.170 g/cm2 T score: -0.1 Z score: 1.2 Total hip BMD: Left: 1.062 g/cm2. T score: 0.4 Z score: 1.7 Right: 1.074 g/cm2. T score: 0.5 Z score: 1.8 10 year probability of a major osteoporotic fracture is 13%. XR/XR DEXA axial skeleton* [id number] IMPRESSION: NORMAL BONE MINERAL DENSITY based upon the WHO classification for females.
== END 2022-01-24 08:51 | disposition home or self-care (01) ==
LOC: RAD 08:51
PROVIDERS: PCP Family Medicine; Visit Provider Family Medicine
DX: Z00.00 Encounter for general adult medical examination without abnormal findings (principal); E78.5 Hyperlipidemia, unspecified
CPT/HCPCS: 77080

== ENCOUNTER 2023-02-10 20:42 | Emergency (ER) | payer MEDICARE, OTHER, SELFPAY ==
--- NOTE | 2023-02-10 20:43 | XRR_ITS ---
PROCEDURE INFORMATION: Exam: XR Chest Exam date and time: 02/10/2023 8:57 PM Age: 73 years old Clinical indication: Pain; Chest pressure; Additional info: Cp TECHNIQUE: Imaging protocol: Radiologic exam of the chest. Views: 1 view. COMPARISON: CR XR chest 1V portable [id number] 01/22/2021 6:48 PM FINDINGS: Lungs: The lung bases are suboptimally assessed due to technique however the upper lungs are clear of focal consolidation. Pleural spaces: Unremarkable. No pleural effusion. No pneumothorax. Heart/Mediastinum: Cardiac silhouette appears normal in size. No obvious vascular congestion. Bones/joints: No acute osseous findings. Lower cervical spine fixation device again noted. Other findings: Single view was submitted. XR/XR chest 1V portable [id number] IMPRESSION: No obvious acute consolidation. Suboptimal lung base assessment. Followup including lateral view may be obtained if clinically indicated.
[2023-02-10 20:47] VITALS: BP 152/84; PULSE 65; RESP 22; TEMP 36.3; O2SAT 98; BMI 31.5
--- NOTE | 2023-02-10 20:53 | ECG_ITS ---
[facility] Test Date: 2023-02-10 Pat Name: Paula Patel Department: Room: Gender: Female Production Support Consultant: : 1950 Requested By: Bessy Chaparro Order Number: [id number] Ephraim MD: Jose E Lui M.D. Measurements Intervals [place] Rate: 69 P: 142 PA: 173 QRS: 120 QRSD: 84 T: 124 QT: 405 QTc: 436 Interpretive Statements SINUS RHYTHM ARM LEADS REVERSED [INVERTED P AND QRS IN I] Compared to ECG 01/22/2021 17:21:55 T-wave abnormality no longer present Electronically Signed On 02-11-2023 1:43:05 CDT by Jose E Lui M.D. [id number]
[2023-02-10 21:16] LABS: Basophils # 0.1 10^3/uL (0.0-0.1); Basophils % 1.2 %; Eosinophils # 0.2 10^3/uL (0.0-0.8); Eosinophils % 2.6 %; Hematocrit 38.5 % (37.0-47.0); Hemoglobin 12.4 g/dL (11.5-15.3); Lymphocytes # 2.7 10^3/uL (0.8-4.8); Lymphocytes % 28.7 %; Mean Corpuscular HGB Conc 32.2 g/dL (30.0-36.0); Mean Corpuscular Hemoglobin 30.2 pg (28.0-34.0); Mean Corpuscular Volume 93.7 fl (81-99); Monocytes # 0.6 10^3/uL (0.2-0.9); Monocytes % 6.9 %; Neutrophils % 60.3 %; Nucleated Red Blood Cells % 0 %; Platelet Count 294 10^3/cmm (130-400); Red Blood Count 4.11 10^6/uL (4.1-5.3); Red Cell Distribution Width 13.5 % (12.1-15.1); White Blood Count 9.3 10^3/uL (4.0-10.0)
[2023-02-10 21:28] LABS: INR 0.93 (0.8-1.2)
[2023-02-10 21:33] LABS: Troponin(5th) Baseline 10 ng/L (0-10)
[2023-02-10 21:35] LABS: Alanine Aminotransferase 21 U/L (0-33); Albumin Level 4.1 g/dL (3.5-5.2); Alkaline Phosphatase 74 U/L (35-105); Anion Gap 17.4 (5-19); Aspartate Amino Transferase 32 U/L (0-32); Blood Urea Nitrogen 13 mg/dL (8-23); Carbon Dioxide 25 mmol/L (22-29); Chloride 102 mmol/L (98-107); Globulin 2.4 g/dL (1.3-4.6); Glucose 120 mg/dL (65-115); Osmolality Calculated 293 mOsm/kg (285-295); Potassium 3.4 mmol/L (3.5-5.1); Sodium 141 mmol/L (136-145); Total Bilirubin 0.8 mg/dL (0.15-1.2); Total Protein 6.5 g/dL (6.6-8.7)
--- NOTE | 2023-02-10 22:43 | ECG_ITS ---
[facility] Test Date: 2023-02-10 Pat Name: Paula Patel Department: Room: Gender: Female Blending Line Attendant: : 1950 Requested By: Bessy Chaparro Order Number: [id number] Ephraim MD: Jose E Lui M.D. Measurements Intervals [place] Rate: 53 P: 26 NV: 172 QRS: 23 QRSD: 81 T: 29 QT: 445 QTc: 421 Interpretive Statements SINUS BRADYCARDIA WITH OCCASIONAL SUPRAVENTRICULAR PREMATURE COMPLEXES Compared to ECG 02/10/2023 20:53:16 Sinus rhythm no longer present Electronically Signed On 02-11-2023 1:45:13 CDT by Jose E Lui M.D. [id number]
[2023-02-10 23:12] VITALS: BP 144/70; PULSE 55; RESP 21; O2SAT 96
--- NOTE | 2023-02-10 23:17 | W.ED.CHESTPA ---
HPI - Chest Pain General: Chief Complaint: Chest Pain Stated Complaint: chest pain Time Seen by Provider: 02/10/23 22:49 Source: patient Mode of arrival: ambulatory Limitations: no limitations History of Present Illness: 73-year-old female states she had a episode of chest pain was roughly 4 hours ago. States pain was a sharp pain in the center of her chest states it lasted for 20 minutes and is since completely resolved. States she does have a history of reflux but states this felt worse than that she denies any shortness of breath he had some slight nausea denies any diaphoresis. States she has been feeling completely fine after the pain is went away she has not had any pain whatsoever the last 3 hours. No history of heart disease. Associated symptoms: Deny abdominal pain, dyspnea, fever(s), nausea or vomiting Review of Systems Const: Denies: fever(s) or body aches ENMT: Reports: throat pain Card: Reports: chest pain Resp: Denies: dyspnea GI: Denies: abdominal pain, nausea, vomiting or diarrhea : Denies: dysuria Musc: Denies: neck pain or back pain Skin/Breast: Denies: rash Neuro: Denies: headache(s) Psych: Denies: depression Jer/Lymph: Denies: easy bruising All/Imm: Denies: urticaria PFSH ED PFSH: Medical History No pertinent family history Pelvic fracture Social History Smoking and tobacco status: former smoker Physical Exam Const: COMMON NORMALS: no acute distress, patient oriented x3 and healthy appearing HENMT: COMMON NORMALS: normocephalic and atraumatic HEAD & SCALP: normocephalic and atraumatic Eye: COMMON NORMALS: Equal, round and reactive pupils present and EOMs intact bilaterally PUPIL: Yes Equal, round and reactive pupils present Neck/C-Spine: COMMON NORMALS: full ROM and supple Chest: COMMONS NORMALS: normal inspection of the chest and normal palpation of entire chest wall Resp: COMMON NORMALS: normal respiratory effort, No retractions, No use of accessory muscles and clear to auscultation bilaterally AUSCULTATION: clear to auscultation bilaterally Cardio: COMMON NORMALS: regular rate, regular rhythm and No murmurs present (Cardio) RATE: regular rate RHYTHM: regular rhythm GI: COMMON NORMALS: Normal to inspection, nondistended, normoactive bowel sounds present, Soft to palpation, non-tender and no masses PALPATION: Yes Soft to palpation Extremity: COMMON NORMALS: normal to inspection and full ROM Neuro: COMMON NORMALS: patient oriented x3, moves all extremities and no focal motor deficits Psych: COMMON NORMALS: mental status grossly normal, Normal thought process present and cooperative THOUGHT PROCESS: Normal thought process present Skin: COMMON NORMALS: no rashes or lesions noted and no wounds GENERAL SKIN EXAM: no rashes or lesions noted Course Vital Signs: Vital signs: Vital Signs Temperature 97.4 F L 02/10/23 20:47 Pulse Rate 55 L 02/10/23 23:12 Respiratory Rate 21 H 02/10/23 23:12 Blood Pressure 144/70 02/10/23 23:12 Pulse Oximetry 96 02/10/23 23:12 Oxygen Delivery Me thod Room Air 02/10/23 20:47 MDM - Chest Pain Medical Decision Making Patient presents here with chest pains atypical in nature is likely gastric related or esophageal spasm. She has been completely pain-free for 3 hours her initial and repeat troponin are normal she has no signs of pulmonary embolism or aortic dissection. She is wanting to go home I feel she is stable for discharge she is to follow-up with PCP and return if she has any pain she understands agrees the plan. Medical Records I reviewed the patient's medical records. Lab Data I reviewed the patient's lab results. 02/10/23 21:00 02/10/23 21:00 Radiology Impressions Chest X-Ray 02/10/23 20:43 IMPRESSION: No obvious acute consolidation. Suboptimal lung base assessment. Followup including lateral view may be obtained if clinically indicated. Laboratory Results WBC 9.3 10^3/uL (4.0-10.0) 02/10/23 21:00 RBC 4.11 10^6/uL (4.1-5.3) 02/10/23 21:00 Hgb 12.4 g/dL (11.5-15.3) 02/10/23 21:00 Hct 38.5 % (37.0-47.0) 02/10/23 21:00 MCV 93.7 fl (81-99) 02/10/23 21:00 MCH 30.2 pg (28.0-34.0) 02/10/23 21:00 MCHC 32.2 g/dL (30.0-36.0) 02/10/23 21:00 RDW 13.5 % (12.1-15.1) 02/10/23 21:00 Plt Count 294 10^3/cmm (130-400) 02/10/23 21:00 MPV 10.0 fL (7.4-10.4) 02/10/23 21:00 Neut % (Auto) 60.3 % 02/10/23 21:00 Lymph % (Auto) 28.7 % 02/10/23 21:00 [place] % (Auto) 6.9 % 02/10/23 21:00 Eos % (Auto) 2.6 % 02/10/23 21:00 Baso % (Auto) 1.2 % 02/10/23 21:00 Neut # (Auto) 5.60 10^3/uL (1.8-7.7) 02/10/23 21:00 Lymph # (Auto) 2.7 10^3/uL (0.8-4.8) 02/10/23 21:00 [place] # (Auto) 0.6 10^3/uL (0.2-0.9) 02/10/23 21:00 Eos # (Auto) 0.2 10^3/uL (0.0-0.8) 02/10/23 21:00 Baso # (Auto) 0.1 10^3/uL (0.0-0.1) 02/10/23 21:00 Nucleated RBC % (auto) 0 % 02/10/23 21:00 Nucleated RBCs # 0.0 /100WBC 02/10/23 21:00 PT 12.70 SECONDS (12.1-14.9) 02/10/23 21:00 INR 0.93 (0.8-1.2) 02/10/23 21:00 Sodium 141 mmol/L (136-145) 02/10/23 21:00 Potassium 3.4 mmol/L (3.5-5.1) L 02/10/23 21:00 Chloride 102 mmol/L (98-107) 02/10/23 21:00 Carbon Dioxide 25 mmol/L (22-29) 02/10/23 21:00 Anion Gap 17.4 (5-19) 02/10/23 21:00 BUN 13 mg/dL (8-23) 02/10/23 21:00 Creatinine 1.0 mg/dL (0.5-0.9) H 02/10/23 21:00 GFR Calculation Not Reportable 02/10/23 21:00 Glucose 120 mg/dL (65-115) H 02/10/23 21:00 Calculated Osmolality 293 mOsm/kg (285-295) 02/10/23 21:00 Calcium 9.0 mg/dL (8.5-10.5) 02/10/23 21:00 Total Bilirubin 0.8 mg/dL (0.15-1.2) 02/10/23 21:00 AST 32 U/L (0-32) 02/10/23 21:00 ALT 21 U/L (0-33) 02/10/23 21:00 Alkaline Phosphatase 74 U/L (35-105) 02/10/23 21:00 Troponin T Baseline 10 ng/L (0-10) 02/10/23 21:00 Troponin T 120 Minute 9.64 ng/L (0-10) 02/10/23 23:17 Delta Troponin T -0.36 ABS# (0-10) L 02/10/23 23:17 Total Protein 6.5 g/dL (6.6-8.7) L 02/10/23 21:00 Albumin 4.1 g/dL (3.5-5.2) 02/10/23 21:00 Globulin 2.4 g/dL (1.3-4.6) 02/10/23 21:00 EKG Data EKG 1: I personally reviewed and interpreted this EKG as follows: EKG interpretation date: 02/10/23 EKG interpretation time: 20:53 Interpretation: nsr hr [address] or t wave abnormalities qrs 84 qtc 425 EKG 2: I personally reviewed and interpreted this EKG as follows: EKG interpretation date: 02/10/23 EKG interpretation time: 23:18 Interpretation: sinus doris hr [address] or t wave abnormalities qrs 81 qtc 429 Discharge Plan Discharge Patient Disposition: Home Clinical Impression: Chest pain Condition: Stable Prescriptions: No Action estradiol 1 mg tablet 1 mg PO DAILY@0700 Qty: 30 11RF simvastatin 20 mg tablet 20 mg PO DAILY@0700 Qty: 30 11RF omeprazole 20 mg capsule,delayed release(DR/EC) 20 mg PO DAILY@0700 escitalopram oxalate 10 mg Tablet 10 mg PO DAILY@0700 tolterodine [Detrol] 1 mg Tablet 1 mg PO DAILY ascorbic acid (vitamin C) 500 mg Tablet 500 mg PO DAILY@0700 albuterol sulfate 90 mcg/actuation HFA aerosol inhaler See Rx Instructions .ROUTE .COMPLEX Rx Instructions: inhaled, use as directed Vitamin B-12 1 tab PO DAILY@0700 nitrofurantoin 100 mg PO BID@0700,1900 vitamin E 1 tab PO DAILY@0700 methocarbamol 750 mg tablet 750 mg PO Q8H PRN (Reason: Muscle spasms and pain) Qty: 20 0RF ibuprofen 800 mg tablet 800 mg PO Q8H PRN (Reason: pain) Qty: 20 0RF Discharge Orders: Discharge ED (Routine); Ordered 02/11/23 Ordered By: Bessy Chaparro Referrals: Orlando Christensen MD [Primary Care Provider] - 1-3 days Discharge Diet: Advance as tolerated Discharge Activity: Resume usual activity Patient Instructions: Chest Pain (ED) Coding Level of Care Code ED Manager Of Training And Development for Tomas Ulloa
[2023-02-10 23:58] LABS: Troponin 5 2HR 9.64 ng/L (0-10)
[2023-02-11 00:08] LABS: Troponin 5 2HR Delta -0.36 ABS# (0-10)
[2023-02-11 00:15] VITALS: BP 123/64; PULSE 58; RESP 18; O2SAT 92
== END 2023-02-11 00:16 | disposition home or self-care (01) ==
PROVIDERS: Emergency Provider Emergency Medicine; PCP Electrodiagnostic Medicine
DX: R07.9 Chest pain, unspecified (principal); Z87.891 Personal history of nicotine dependence
CPT/HCPCS: 36415; 71045; 80053; 84484; 85025; 85610; 93005; 99285

== ENCOUNTER 2023-08-27 16:48 | Emergency (ER) | payer MEDICARE, OTHER, SELFPAY ==
--- NOTE | 2023-08-27 16:52 | ECG_ITS ---
[facility] Test Date: 2023-08-27 Pat Name: Paula Patel Department: Room: Gender: Female Ladle Filler: : 1950 Requested By: Terrance Reynolds Order Number: [id number] Ephraim MD: Jose E Lui M.D. Measurements Intervals [place] Rate: 74 P: 43 [place]: 181 QRS: 22 QRSD: 86 T: 45 QT: 387 QTc: 431 Interpretive Statements SINUS RHYTHM Compared to ECG 02/10/2023 23:18:06 Sinus bradycardia no longer present Electronically Signed On 08-28-2023 12:30:40 CDT by Jose E Lui M.D. [id number] f
[2023-08-27 16:54] VITALS: BP 169/81; PULSE 77; RESP 20; TEMP 36.3; O2SAT 100
[2023-08-27 17:24] VITALS: BP 182/79; PULSE 69; RESP 18; O2SAT 100
--- NOTE | 2023-08-27 17:24 | XRR_ITS ---
PROCEDURE INFORMATION: Exam: XR Chest Exam date and time: 08/27/2023 7:03 PM Age: 73 years old Clinical indication: Chest wall pain; Additional info: Chest pain TECHNIQUE: Imaging protocol: Radiologic exam of the chest. Views: 1 view. COMPARISON: CR XR chest 1V portable [id number] 02/10/2023 8:57 PM FINDINGS: Lungs: Unremarkable. No consolidation. Pleural spaces: Unremarkable. No pleural effusion. No pneumothorax. Heart/Mediastinum: Unremarkable. No cardiomegaly. Bones/joints: Unremarkable. XR/XR chest 1V portable [id number] IMPRESSION: No acute findings.
[2023-08-27 17:42] VITALS: PULSE 61; RESP 18; O2SAT 97
--- NOTE | 2023-08-27 17:51 | W.ED.CHESTPA ---
Documented by User: Terrance Dotson DO 08/28/23 07:32 HPI - Chest Pain General: Chief Complaint: Chest Pain Stated Complaint: chest pain Time Seen by Provider: 08/27/23 17:23 Source: patient Mode of arrival: ambulatory History of Present Illness: 73-year-old female presents emergency room complaint of left-sided chest pain that began while at rest. She had gone shopping came home was parking her car and began having chest pain to progressively worsen she will little shortness of breath with some nausea and vomiting she took different Tums and vozh-ggt-bnebido medications Pepto-Bismol to try to relieve her symptoms that has improved now she is also taken 3 aspirin. She states several years ago she had a stress test that she was told was normal. She has no known history of coronary artery disease initial EKG does not show any acute ST changes MD complaint: chest pain Onset (ago): hour(s) Timing of current episode: episodic Onset: during rest Pain location: substernal and left chest Relieving factors: nothing Exacerbating factors: nothing Associated symptoms: Deny abdominal pain, dyspnea or fever(s) Review of Systems Const: Denies: fever(s) or chills Card: Denies: chest pain Resp: Denies: dyspnea GI: Denies: abdominal pain : Denies: dysuria, urinary frequency or urinary urgency Musc: Denies: neck pain or back pain Skin/Breast: Denies: rash PFSH ED PFSH: Medical History No pertinent family history Pelvic fracture Social History Smoking and tobacco/nicotine status: former use of tobacco/nicotine Physical Exam Const: COMMON NORMALS: no acute distress GENERAL APPEARANCE: cooperative and comfortable ORIENTATION/CONSCIOUSNESS: Yes awake, Yes oriented to person, Yes oriented to place and Yes oriented to time HENMT: COMMON NORMALS: normocephalic, atraumatic and hearing grossly normal bilaterally HEAD & SCALP: normocephalic and atraumatic Resp: COMMON NORMALS: normal respiratory effort, No retractions, No use of accessory muscles and clear to auscultation bilaterally AUSCULTATION: clear to auscultation bilaterally Cardio: COMMON NORMALS: regular rate, regular rhythm and No murmurs present (Cardio) RATE: regular rate RHYTHM: regular rhythm GI: COMMON NORMALS: Soft to palpation and No hepatosplenomegaly present AUSCULTATION: Yes normoactive bowel sounds PALPATION: Yes Soft to palpation, No Tenderness to palpation present (GI), No Guarding due to palpation present (GI) and Yes No hepatosplenomegaly present Extremity: COMMON NORMALS: normal to inspection, capillary refill normal, no clubbing, cyanosis or edema, no calf tenderness and no pedal edema Neuro: SENSORIUM/ORIENTATION: Yes oriented to person, Yes oriented to place and Yes oriented to time Skin: COMMON NORMALS: no rashes or lesions noted GENERAL SKIN EXAM: no rashes or lesions noted Course Vital Signs: Vital signs: Vital Signs Temperature 97.4 F L 08/27/23 20:53 Pulse Rate 62 08/27/23 20:53 Respiratory Rate 18 08/27/23 20:53 Blood Pressure 182/79 08/27/23 20:53 Pulse Oximetry 100 08/27/23 20:53 Oxygen Delivery Me thod Room Air 08/27/23 18:55 MDM - Chest Pain Medical Decision Making Initial EKG no acute ST segment changes. Care signed out to Dr. Chaparro at change of shift. See final notes for diagnosis and disposition. Patient presents here with chest pain atypical in nature she states the GI cocktail resolved her pain EKG and troponins here are normal I did inform her she is to follow-up with her PCP likely needs an outpatient stress test that she has a pain return she is return to the ER she understands agrees to plan. Lab Data 08/27/23 17:34 08/27/23 17:34 Radiology Impressions Chest X-Ray 08/27/23 17:24 IMPRESSION: No acute findings. Laboratory Results WBC 14.33 10^3/uL (3.29-11.43) H 08/27/23 17:34 RBC 4.44 10^6/uL (3.85-5.65) 08/27/23 17:34 Hgb 13.40 g/dL (11.27-16.99) 08/27/23 17:34 Hct 40.6 % (36-47) 08/27/23 17:34 MCV 91.4 fl (85-98) 08/27/23 17:34 MCH 30.2 pg (27-33) 08/27/23 17:34 MCHC 33.0 g/dL (30-55) 08/27/23 17:34 RDW 13.2 % (12.1-15.1) 08/27/23 17:34 Plt Count 336 10^3/cmm (157-399) 08/27/23 17:34 MPV 10.2 fL (7.4-10.4) 08/27/23 17:34 Neut % (Auto) 76.5 % 08/27/23 17:34 Lymph % (Auto) 13.8 % 08/27/23 17:34 Ector % (Auto) 8.2 % 08/27/23 17:34 Eos % (Auto) 0.6 % 08/27/23 17:34 Baso % (Auto) 0.6 % 08/27/23 17:34 Neut # (Auto) 10.96 10^3/uL (1.8-7.7) H 08/27/23 17:34 Lymph # (Auto) 2.0 10^3/uL (0.8-4.8) 08/27/23 17:34 Ector # (Auto) 1.2 10^3/uL (0.2-0.9) H 08/27/23 17:34 Eos # (Auto) 0.1 10^3/uL (0.0-0.8) 08/27/23 17:34 Baso # (Auto) 0.1 10^3/uL (0.0-0.1) 08/27/23 17:34 Nucleated RBC % (auto) 0 % 08/27/23 17:34 Nucleated RBCs # 0.0 /100WBC 08/27/23 17:34 Sodium 143 mmol/L (136-145) 08/27/23 17:34 Potassium 4.1 mmol/L (3.5-5.1) 08/27/23 17:34 Chloride 101 mmol/L (98-107) 08/27/23 17:34 Carbon Dioxide 25 mmol/L (22-29) 08/27/23 17:34 Anion Gap 21.1 (5-19) H 08/27/23 17:34 BUN 18 mg/dL (8-23) 08/27/23 17:34 Creatinine 1.0 mg/dL (0.5-0.9) H 08/27/23 17:34 GFR Calculation Not Reportable 08/27/23 17:34 Glucose 122 mg/dL (65-115) H 08/27/23 17:34 Calculated Osmolality 299 mOsm/kg (285-295) H 08/27/23 17:34 Calcium 9.6 mg/dL (8.5-10.5) 08/27/23 17:34 Total Bilirubin 1.2 mg/dL (0.15-1.2) 08/27/23 17:34 AST 195 U/L (0-32) H 08/27/23 17:34 ALT 96 U/L (0-33) H 08/27/23 17:34 Alkaline Phosphatase 139 U/L (35-105) H 08/27/23 17:34 Troponin T Baseline 20 ng/L (0-10) H 08/27/23 17:34 Troponin T 120 Minute 23.96 ng/L (0-10) H 08/27/23 19:37 Delta Troponin T 3.96 ABS# (0-10) 08/27/23 19:37 Total Protein 6.7 g/dL (6.6-8.7) 08/27/23 17:34 Albumin 4.4 g/dL (3.5-5.2) 08/27/23 17:34 Globulin 2.3 g/dL (1.3-4.6) 08/27/23 17:34 Discharge Plan Discharge Patient Disposition: Home Clinical Impression: Chest pain Condition: Stable Prescriptions: No Action estradiol 1 mg tablet 1 mg PO DAILY@0700 Qty: 30 11RF simvastatin 20 mg tablet 20 mg PO DAILY@0700 Qty: 30 11RF omeprazole 20 mg capsule,delayed release(DR/EC) 20 mg PO DAILY@0700 escitalopram oxalate 10 mg Tablet 10 mg PO DAILY@0700 tolterodine [Detrol] 1 mg Tablet 1 mg PO DAILY ascorbic acid (vitamin C) 500 mg Tablet 500 mg PO DAILY@0700 albuterol sulfate 90 mcg/actuation HFA aerosol inhaler See Rx Instructions .ROUTE .COMPLEX Rx Instructions: inhaled, use as directed Vitamin B-12 1 tab PO DAILY@0700 nitrofurantoin 100 mg PO BID@0700,1900 vitamin E 1 tab PO DAILY@0700 methocarbamol 750 mg tablet 750 mg PO Q8H PRN (Reason: Muscle spasms and pain) Qty: 20 0RF ibuprofen 800 mg tablet 800 mg PO Q8H PRN (Reason: pain) Qty: 20 0RF Discharge Orders: Discharge ED (Routine); Ordered 08/27/23 Ordered By: Bessy Chaparro Referrals: Don Hubbard DO [Primary Care Provider] - 1-3 days Discharge Diet: Advance as tolerated Discharge Activity: Resume usual activity Patient Instructions: Chest Pain (ED) Coding Level of Care Code ED Tool Setter Apprentice for Chg Fwd Documented by User: Bessy Chaparro MD 08/27/23 20:49 HPI - Chest Pain General: Chief Complaint: Chest Pain Stated Complaint: chest pain Time Seen by Provider: 08/27/23 17:23 PFS ED PFSH: Medical History No pertinent family history Pelvic fracture Social History Smoking and tobacco/nicotine status: former use of tobacco/nicotine Course Vital Signs: Vital signs: Vital Signs Temperature 97.4 F L 08/27/23 20:53 Pulse Rate 62 08/27/23 20:53 Respiratory Rate 18 08/27/23 20:53 Blood Pressure 182/79 08/27/23 20:53 Pulse Oximetry 100 08/27/23 20:53 Oxygen Delivery Me thod Room Air 08/27/23 18:55 MDM - Chest Pain Medical Decision Making Patient presents here with chest pain atypical in nature she states the GI cocktail resolved her pain EKG and troponins here are normal I did inform her she is to follow-up with her PCP likely needs an outpatient stress test that she has a pain return she is return to the ER she understands agrees to plan. Medical Records I reviewed the patient's medical records. Lab Data I reviewed the patient's lab results. 08/27/23 17:34 08/27/23 17:34 Radiology Impressions Chest X-Ray 08/27/23 17:24 IMPRESSION: No acute findings. Laboratory Results WBC 14.33 10^3/uL (3.29-11.43) H 08/27/23 17:34 RBC 4.44 10^6/uL (3.85-5.65) 08/27/23 17:34 Hgb 13.40 g/dL (11.27-16.99) 08/27/23 17:34 Hct 40.6 % (36-47) 08/27/23 17:34 MCV 91.4 fl (85-98) 08/27/23 17:34 MCH 30.2 pg (27-33) 08/27/23 17:34 MCHC 33.0 g/dL (30-55) 08/27/23 17:34 RDW 13.2 % (12.1-15.1) 08/27/23 17:34 Plt Count 336 10^3/cmm (157-399) 08/27/23 17:34 MPV 10.2 fL (7.4-10.4) 08/27/23 17:34 Neut % (Auto) 76.5 % 08/27/23 17:34 Lymph % (Auto) 13.8 % 08/27/23 17:34 Ector % (Auto) 8.2 % 08/27/23 17:34 Eos % (Auto) 0.6 % 08/27/23 17:34 Baso % (Auto) 0.6 % 08/27/23 17:34 Neut # (Auto) 10.96 10^3/uL (1.8-7.7) H 08/27/23 17:34 Lymph # (Auto) 2.0 10^3/uL (0.8-4.8) 08/27/23 17:34 Ector # (Auto) 1.2 10^3/uL (0.2-0.9) H 08/27/23 17:34 Eos # (Auto) 0.1 10^3/uL (0.0-0.8) 08/27/23 17:34 Baso # (Auto) 0.1 10^3/uL (0.0-0.1) 08/27/23 17:34 Nucleated RBC % (auto) 0 % 08/27/23 17:34 Nucleated RBCs # 0.0 /100WBC 08/27/23 17:34 Sodium 143 mmol/L (136-145) 08/27/23 17:34 Potassium 4.1 mmol/L (3.5-5.1) 08/27/23 17:34 Chloride 101 mmol/L (98-107) 08/27/23 17:34 Carbon Dioxide 25 mmol/L (22-29) 08/27/23 17:34 Anion Gap 21.1 (5-19) H 08/27/23 17:34 BUN 18 mg/dL (8-23) 08/27/23 17:34 Creatinine 1.0 mg/dL (0.5-0.9) H 08/27/23 17:34 GFR Calculation Not Reportable 08/27/23 17:34 Glucose 122 mg/dL (65-115) H 08/27/23 17:34 Calculated Osmolality 299 mOsm/kg (285-295) H 08/27/23 17:34 Calcium 9.6 mg/dL (8.5-10.5) 08/27/23 17:34 Total Bilirubin 1.2 mg/dL (0.15-1.2) 08/27/23 17:34 AST 195 U/L (0-32) H 08/27/23 17:34 ALT 96 U/L (0-33) H 08/27/23 17:34 Alkaline Phosphatase 139 U/L (35-105) H 08/27/23 17:34 Troponin T Baseline 20 ng/L (0-10) H 08/27/23 17:34 Troponin T 120 Minute 23.96 ng/L (0-10) H 08/27/23 19:37 Delta Troponin T 3.96 ABS# (0-10) 08/27/23 19:37 Total Protein 6.7 g/dL (6.6-8.7) 08/27/23 17:34 Albumin 4.4 g/dL (3.5-5.2) 08/27/23 17:34 Globulin 2.3 g/dL (1.3-4.6) 08/27/23 17:34 All radiology interpretation(s) finalized by discharge Discharge Plan Discharge Patient Disposition: Home Clinical Impression: Chest pain Condition: Stable Prescriptions: No Action estradiol 1 mg tablet 1 mg PO DAILY@0700 Qty: 30 11RF simvastatin 20 mg tablet 20 mg PO DAILY@0700 Qty: 30 11RF omeprazole 20 mg capsule,delayed release(DR/EC) 20 mg PO DAILY@0700 escitalopram oxalate 10 mg Tablet 10 mg PO DAILY@0700 tolterodine [Detrol] 1 mg Tablet 1 mg PO DAILY ascorbic acid (vitamin C) 500 mg Tablet 500 mg PO DAILY@0700 albuterol sulfate 90 mcg/actuation HFA aerosol inhaler See Rx Instructions .ROUTE .COMPLEX Rx Instructions: inhaled, use as directed Vitamin B-12 1 tab PO DAILY@0700 nitrofurantoin 100 mg PO BID@0700,1900 vitamin E 1 tab PO DAILY@0700 methocarbamol 750 mg tablet 750 mg PO Q8H PRN (Reason: Muscle spasms and pain) Qty: 20 0RF ibuprofen 800 mg tablet 800 mg PO Q8H PRN (Reason: pain) Qty: 20 0RF Discharge Orders: Discharge ED (Routine); Ordered 08/27/23 Ordered By: Bessy Chaparro Referrals: Don Hubbard DO [Primary Care Provider] - 1-3 days Discharge Diet: Advance as tolerated Discharge Activity: Resume usual activity Patient Instructions: Chest Pain (ED) Coding Level of Care Code ED Tool Setter Apprentice for Tomas Ulloa
[2023-08-27 17:56] LABS: Basophils # 0.1 10^3/uL (0.0-0.1); Basophils % 0.6 %; Eosinophils # 0.1 10^3/uL (0.0-0.8); Eosinophils % 0.6 %; Hematocrit 40.6 % (36-47); Lymphocytes % 13.8 %; Mean Corpuscular Hemoglobin 30.2 pg (27-33); Mean Corpuscular Volume 91.4 fl (85-98); Mean Platelet Volume 10.2 fL (7.4-10.4); Monocytes # 1.2 10^3/uL (0.2-0.9); Monocytes % 8.2 %; Neutrophils # 10.96 10^3/uL (1.8-7.7); Neutrophils % 76.5 %; Nucleated Red Blood Cells % 0 %; Platelet Count 336 10^3/cmm (157-399); Red Blood Count 4.44 10^6/uL (3.85-5.65); Red Cell Distribution Width 13.2 % (12.1-15.1); White Blood Count 14.33 10^3/uL (3.29-11.43)
[2023-08-27 18:15] LABS: Troponin(5th) Baseline 20 ng/L (0-10)
[2023-08-27 18:19] LABS: Alanine Aminotransferase 96 U/L (0-33); Albumin Level 4.4 g/dL (3.5-5.2); Alkaline Phosphatase 139 U/L (35-105); Anion Gap 21.1 (5-19); Aspartate Amino Transferase 195 U/L (0-32); Blood Urea Nitrogen 18 mg/dL (8-23); Calcium 9.6 mg/dL (8.5-10.5); Carbon Dioxide 25 mmol/L (22-29); Chloride 101 mmol/L (98-107); Globulin 2.3 g/dL (1.3-4.6); Glucose 122 mg/dL (65-115); Osmolality Calculated 299 mOsm/kg (285-295); Potassium 4.1 mmol/L (3.5-5.1); Sodium 143 mmol/L (136-145); Total Bilirubin 1.2 mg/dL (0.15-1.2); Total Protein 6.7 g/dL (6.6-8.7)
[2023-08-27 18:55] VITALS: PULSE 62; RESP 18; O2SAT 100
--- NOTE | 2023-08-27 19:25 | ECG_ITS ---
[facility] Test Date: 2023-08-27 Pat Name: Paula Patel Department: Room: Gender: Female Truck Manager: : 1950 Requested By: Terrance Reynolds Order Number: [id number] Ephraim MD: Jose E Lui M.D. Measurements Intervals [place] Rate: 63 P: 31 KS: 184 QRS: 16 QRSD: 84 T: 30 QT: 429 QTc: 441 Interpretive Statements SINUS RHYTHM Compared to ECG 02/10/2023 23:18:06 Sinus bradycardia no longer present Electronically Signed On 08-28-2023 12:32:00 CDT by Jose E Lui M.D. [id number]
[2023-08-27] MEDS: morphine 4 mg/mL SDV 1 mL IVP (19:28)
[2023-08-27] MEDS: ondansetron 2 mg/ML SDV 2 mL 4 MG IVP (19:28)
[2023-08-27 20:23] LABS: Troponin 5 2HR 23.96 ng/L (0-10)
[2023-08-27 20:28] LABS: Troponin 5 2HR Delta 3.96 ABS# (0-10)
[2023-08-27 20:53] VITALS: BP 182/79; PULSE 62; RESP 18; TEMP 36.3; O2SAT 100
== END 2023-08-27 20:54 | disposition home or self-care (01) ==
PROVIDERS: Family Medicine; Emergency Provider Emergency Medicine; PCP Electrodiagnostic Medicine
DX: R07.9 Chest pain, unspecified (principal); Z87.891 Personal history of nicotine dependence
CPT/HCPCS: 36415; 71045; 80053; 84484; 85025; 93005; 96374; 96375; 99285; J2270; J2405

== ENCOUNTER 2023-09-15 07:16 | Outpatient (CLI) | payer MEDICARE, OTHER, SELFPAY ==
--- NOTE | 2023-09-15 | ECG_ITS ---
[facility] Test Date: 2023-09-15 Pat Name: Paula Patel Department: Room: Gender: Female Driver Material Handler: Avril Joshuafus : 1950 Requested By: Don Guidry Order Number: [id number] Ephraim MD: Lizy Mortensen M.D. Interpretive Statements NAME OF STUDY: LEXISCAN SESTAMIBI STRESS TEST INDICATION: Chest Pain, PROCEDURE: At the baseline, the EKG revealed normal sinus rhythm with a normal ST Ts.. The baseline heart was 61 bpm with a blood pressue of 121/76 mm of Hg Lexiscan was infused over a period of 20 seconds. A total of 0.4 milligrams of Lexiscan was infused. The stress phase was continued for a total of 5 minutes. Heart rate at the end of the stress phase was 73 bpm with a blood pressure 119/61 mm of Hg. The EKG at the peak infusion revealed no significant changes. Sestamibi was injected 20 seconds after the Lexiscan infusion. Heart rate at the end of the recovery phase was 70 bpm with a blood pressure of 123/66 mm of Hg. CONCLUSION: 1. No significant EKG changes with the LexiScan infusion 2. No LexiScan induced chest pain or cardiac arrhythmia 3. Normal blood pressure and heart rate response 4. Sestamibi/sestamibi perfusion scan pending; see separate report. Electronically Signed On 09-18-2023 13:24:12 DATA ENTRY SPECIALIST by Lizy Mortensen M.D. [id number]
[2023-09-15 07:43] VITALS: BMI 32.2
--- NOTE | 2023-09-15 07:44 | NMCV_ITS ---
NM amarjit perf SPECT r/s* [id number] Paula Patel Age: 73 Gender: F : 1950 Exam Date: 09/15/2023 08:09 Ordering Phys: Don Hubbard DO Technologist: RODOLFO Brown Exam Location: [facility] Indications: CHEST PAIN STRESS TEST Please see separate stress test report [facility] for full findings IMAGE PROTOCOL Rest/Stress 1 Lexiscan Day Radiopharmaceutical Dose (mCi) Administration Site Administered by Rest: Tc-99m 10.8 IV RODOLFO Narvaez Sestamibi Stress:Tc-99m 32.6 IV RODOLFO Narvaez Sestamibi Rest: 15-Sep-2023 60 Discovery 630 Stress: 15-Sep-2023 30 Discovery 630 0.4mg Lexiscan. Images obtained in supine and prone position. SPECT RESULTS Technical Quality: Good Raw Data Analysis: Subdiaphragmatic activity Image Corrections: No attenuation or motion correction applied Summed Stress Score: 0 Summed Rest Score: 1 Summed Difference Score: 0 PERFUSION FINDINGS Fairly uniform myocardial tracer uptake with no significant perfusion abnormalities. Some areas of attenuation artifacts are noted in the inferior wall region FUNCTIONAL RESULTS (calculated via Gated SPECT) Stress Image LV EF (%): 71 Stress EDV (mL):87 TID: 0.91 Stress ESV (mL):25 FUNCTIONAL FINDINGS: Segmental wall motion analysis revealing no gross wall motion abnormalities IMPRESSIONS 1. Myocardial perfusion imaging revealing fairly uniform myocardial tracer uptake with no significant perfusion abnormalities. 2. Normal LV ejection fraction of 71%. 3. LV wall motion analysis revealing no gross wall motion abnormalities. 4. Normal LV volume. Low probability for coronary ischemia, based on the above findings Dr Lizy Mortensen MD FACC (Electronically Signed) Final Date: 15 September 2023 13:58 S
[2023-09-15] MEDS: regadenoson 0.4 Mg/5 ml Syringe IVP (09:21)
[2023-09-15 09:28] VITALS: BP 123/66; PULSE 70
== END 2023-09-15 07:17 | disposition home or self-care (01) ==
LOC: CDL 07:17
PROVIDERS: PCP Electrodiagnostic Medicine; Visit Provider Electrodiagnostic Medicine
DX: R07.9 Chest pain, unspecified (principal)
CPT/HCPCS: 36415; 78452; 93017; 96374; A9500; J2785

== ENCOUNTER 2025-02-14 15:01 | Outpatient (CLI) | payer MEDICARE, SELFPAY ==
--- NOTE | 2025-02-14 15:11 | XR_ITS ---
WS: [id number] SCREENING DEXA SCAN [employer] CLINICAL INFORMATION: OSTEOPOROSIS COMPARISON: 2021 FINDINGS: The L1-L4 bone mineral density measures 1.197 g/cm2. This corresponds to a T score score of 0.1 and Z score of 1.2. Left femoral neck bone mineral density measures 1.029 g/cm2. This corresponds to a T score of 0.2 and Z score of 1.5. Right femoral neck bone mineral density measures 1.047 g/cm2. This corresponds to a T score 0.3of and Z score of 1.6. Mean femoral neck bone mineral density measures 1.038 g/cm2. This corresponds to a T score of 0.2 and Z score of 1.5. XR/XR DEXA axial skeleton* [id number] IMPRESSION: Normal bone mineralization lumbar spine and femoral necks. Patient's FRAX calculated 10 year probability for major osteoporotic fracture i s 20.0% and osteoporotic hip fracture is 5.7%.
== END 2025-02-14 15:02 | disposition home or self-care (01) ==
LOC: RAD 15:02
PROVIDERS: PCP Electrodiagnostic Medicine; Visit Provider Electrodiagnostic Medicine
DX: M81.0 Age-related osteoporosis without current pathological fracture (principal)
CPT/HCPCS: 77080

== ENCOUNTER 2025-04-10 00:39 | Emergency (ER) | payer MEDICARE, SELFPAY ==
[2025-04-10] VITALS (12 sets, daily range): BP systolic 135–204; BP diastolic 62–85; PULSE 53–77; RESP 14–20; TEMP 36.6; O2SAT 93–100; BMI 32.9
--- NOTE | 2025-04-10 00:49 | ECG_ITS ---
[facility] Date: 2025-04-10 Pat Name: Paula Patel Department: Room: Gender: Female Agency Appointments Supervisor: : 1950 Requested By: Yuri Martin Order Number: [id number] Ephraim MD: Lizy Mortensen M.D. Measurements Intervals [place] Rate: 64 P: 68 [place]: 193 QRS: 55 QRSD: 88 T: 32 QT: 408 QTc: 422 Interpretive Statements SINUS RHYTHM Compared to ECG 08/27/2023 19:50:35 No significant changes Electronically Signed On 04-10-2025 21:59:03 CDT by Lizy Mortensen M.D. [id number] [id number]
--- NOTE | 2025-04-10 00:59 | XRR_ITS ---
PROCEDURE INFORMATION: Exam: XR Chest Exam date and time: 04/10/2025 1:25 AM Age: 75 years old Clinical indication: Pain; Chest pressure and right-sided; Additional info: Cp TECHNIQUE: Imaging protocol: Radiologic exam of the chest. Views: 1 view. COMPARISON: CR XR chest 1V portable [id number] 08/27/2023 7:03 PM FINDINGS: Lungs: No large focal consolidation. Pleural spaces: No large pleural effusion. No distinct pneumothorax. Heart/Mediastinum: Cardiomediastinal silhouette is midline and normal in size. Bones/joints: Partially imaged ACDF. No distinct acute osseous findings. XR/XR chest 1V portable [id number] IMPRESSION: No acute cardiopulmonary findings.
[2025-04-10 01:23] LABS: Basophils # 0.1 10^3/uL (0.0-0.1); Basophils % 0.8 %; Eosinophils # 0.3 10^3/uL (0.0-0.8); Eosinophils % 3.2 %; Hematocrit 38.8 % (36-47); Lymphocytes # 2.2 10^3/uL (0.8-4.8); Lymphocytes % 25.6 %; Mean Corpuscular HGB Conc 33.2 g/dL (30-55); Mean Corpuscular Hemoglobin 29.7 pg (27-33); Mean Corpuscular Volume 89.2 fl (85-98); Monocytes # 0.7 10^3/uL (0.2-0.9); Monocytes % 7.7 %; Neutrophils # 5.41 10^3/uL (1.8-7.7); Neutrophils % 62.6 %; Nucleated Red Blood Cells % 0 %; Platelet Count 265 10^3/cmm (157-399); Red Blood Count 4.35 10^6/uL (3.85-5.65); Red Cell Distribution Width 13.5 % (12.1-15.1); White Blood Count 8.66 10^3/uL (3.29-11.43)
[2025-04-10 01:40] LABS: Troponin(5th) Baseline 10 ng/L (0-10)
[2025-04-10 01:50] LABS: Alanine Aminotransferase 21 U/L (0-33); Albumin Level 4.2 g/dL (3.5-5.2); Alkaline Phosphatase 122 U/L (35-105); Anion Gap 17.9 (5-19); Aspartate Amino Transferase 26 U/L (0-32); Blood Urea Nitrogen 18 mg/dL (8-23); Calcium 9.6 mg/dL (8.5-10.5); Carbon Dioxide 25 mmol/L (22-29); Chloride 101 mmol/L (98-107); Creatinine Clr Calc Pharmacy 49.2526; Globulin 2.4 g/dL (1.3-4.6); Glucose 103 mg/dL (65-115); Lipase 20 U/L (13-60); NT Pro B Type Natriuretic Pept 65 pg/mL (0-450); Osmolality Calculated 292 mOsm/kg (285-295); Potassium 3.9 mmol/L (3.5-5.1); Sodium 140 mmol/L (136-145); Total Bilirubin 1.3 mg/dL (0.15-1.2); Total Protein 6.6 g/dL (6.6-8.7)
[2025-04-10] MEDS: lidocaine 2% viscous 15 ML, aluminum-mag hydrox-simethicon 30 ML, sucralfate oral liq 1 GM PO (01:52)
[2025-04-10] MEDS: ondansetron 2 mg/ML SDV 2 mL 4 MG IVP (01:54)
[2025-04-10] MEDS: morphine 4 mg/mL SDV 1 mL IVP (01:54)
--- NOTE | 2025-04-10 02:11 | USR_ITS ---
PROCEDURE INFORMATION: Exam: US Abdomen, Limited; Right Upper Quadrant Exam date and time: 04/10/2025 4:07 AM Age: 75 years old Clinical indication: Abdominal pain; Generalized; HX of appendectomy; Additional info: Ruq pain TECHNIQUE: Imaging protocol: Real time ultrasound of the abdomen with image documentation. Limited exam focused on the right upper quadrant. COMPARISON: CT angio chest PE protcl [id number] 01/22/2021 8:13 PM FINDINGS: Liver: Liver demonstrates diffuse hyperechoic echogenicity. Gallbladder: Moderate amount of dependent sludge with probable small stones within the gallbladder. Mild gallbladder wall thickening up to 0.4 cm. Questionable trace pericholecystic fluid. Guidance Director reports a positive sonographic Robert's sign. Biliary ducts: Common bile duct is mildly dilated up to 0.9 cm. Pancreas: Partially imaged pancreas is normal in appearance. Right kidney: Right kidney is normal in size. No hydronephrosis. Small echogenic focus in the right kidney midportion, measuring up to 0.7 cm. Aorta: Visualized aorta is normal in appearance. Inferior vena cava: Visualized IVC is normal in appearance. US/US gall bladder [id number] IMPRESSION: 1. Moderate amount of dependent sludge with probable small stones within the gallbladder. Mild gallbladder wall thickening up to 0.4 cm. Questionable trace pericholecystic fluid. Guidance Director reports a positive sonographic Robert's sign. These findings are compatible with acute calculus cholecystitis. 2. Common bile duct is mildly dilated up to 0.9 cm. 3. Small echogenic focus in the right kidney midportion, measuring up to 0.7 cm. This may be artifactual or may represent a small nonobstructing nephrolith. 4. Liver demonstrates diffuse hyperechoic echogenicity. This is most consistent with hepatic steatosis.
--- NOTE | 2025-04-10 02:12 | W.ED.CHESTPA ---
Documented by User: Yuri Kendrick DO 04/10/25 06:37 HPI - Chest Pain General: Chief Complaint: Chest Pain Stated Complaint: Cold Sweats\Chest Pains\N\V Time Seen by Provider: 04/10/25 01:09 History of Present Illness: 75-year-old female presenting with right lower chest and upper abdominal pain. She has vomited. She has been nauseated. No shortness of breath. No history of cardiac disease. No fever. She states she woke with this pain 1130 last night. Related Data Home Medications ?Medication ?Instructions ?Recorded ?Confirmed albuterol sulfate 90 mcg/actuation 2 puff inhalation Q6H PRN 01/22/21 04/10/25 aerosol inhaler Shortness Of Breath atorvastatin 40 mg tablet 40 mg PO BEDTIME 04/10/25 04/10/25 calcium 600 mg (as 1 tab PO DAILY 04/10/25 04/10/25 carbonate)-vitamin D3 5 mcg (200 unit) tablet lactobacillus combination no.4 3 3,000 mmu cells PO DAILY 04/10/25 04/10/25 billion cell capsule (Probiotic) mirabegron 50 mg tablet,extended 50 mg PO DAILY 04/10/25 04/10/25 release 24 hr (Myrbetriq) omeprazole 40 mg capsule,delayed 40 mg PO BEDTIME 04/10/25 04/10/25 release semaglutide (weight loss) 0.25 0.25 mg SUBCUT Q7D 04/10/25 04/10/25 mg/0.5 mL subcutaneous pen injector (Conorgovrahel) turmeric root extract 300 mg 300 mg PO BID 04/10/25 04/10/25 capsule Previous Rx's ?Medication ?Instructions ?Recorded estradiol 1 mg tablet 1 mg PO DAILY@0700 #30 tabs 10/14/22 Allergies Allergy/AdvReac Type Severity Reaction Status Date / Time Penicillins Allergy ALGY-Difficulty Verified 04/10/25 00:59 Breathing PFS ED PFSH: Medical History No pertinent family history Pelvic fracture Social History Smoking and tobacco/nicotine status: former use of tobacco/nicotine Physical Exam Const: COMMON NORMALS: no acute distress GENERAL APPEARANCE: cooperative HENMT: COMMON NORMALS: normocephalic, atraumatic and Normal external nose present HEAD & SCALP: normocephalic and atraumatic FACE & SINUS: normal facial exam and face symmetric NOSE: Normal external nose present Eye: COMMON NORMALS: Equal, round and reactive pupils present and EOMs intact bilaterally PUPIL: Yes Equal, round and reactive pupils present Neck/C-Spine: GENERAL: Yes trachea midline Chest: CHEST: Yes Symmetrical chest wall rise Resp: COMMON NORMALS: normal respiratory effort, No retractions, No use of accessory muscles and clear to auscultation bilaterally AUSCULTATION: clear to auscultation bilaterally Cardio: COMMON NORMALS: regular rate and regular rhythm RATE: regular rate RHYTHM: regular rhythm GI: COMMON NORMALS: Normal to inspection, nondistended, normoactive bowel sounds present PALPATION: Yes Tenderness to palpation present (GI) Details: RUQ Extremity: COMMON NORMALS: no pedal edema Neuro: FLORIAN COMA SCALE: document GCS findings Florian coma scale eye opening: Spontaneous Florian coma scale verbal response: Orientated Florian coma scale motor response: Obey commands Florian coma scale total score: 15 SENSORY EXAM: Yes extremities (intact) Psych: COMMON NORMALS: speech normal SPEECH: Yes normal speech Skin: COMMON NORMALS: no rashes or lesions noted GENERAL SKIN EXAM: no rashes or lesions noted Course Vital Signs: Vital signs: Vital Signs Temperature 97.8 F 04/10/25 00:48 Pulse Rate 61 04/10/25 14:49 Respiratory Rate 20 H 04/10/25 09:30 Blood Pressure 151/80 04/10/25 14:49 Pulse Oximetry 100 04/10/25 14:49 Oxygen Delivery Me thod Room Air 04/10/25 14:49 Oxygen Flow Rate 2 04/10/25 09:45 MDM - Chest Pain Medical Decision Making Pain is improved after morphine and GI cocktail. CBC is normal. BMP is not remarkable. Lipase is normal. Bilirubin is 1.3, alk phos is 122. No other abnormal findings. Chest x-ray is negative. Right upper quadrant ultrasound is pending. Right upper quadrant ultrasound shows cholecystitis with stones. Common bile duct is mildly dilated. Spoke with surgery. Recommendations are IV antibiotics, MRCP this morning when available, reevaluation at that point. Lab Data 04/10/25 00:12 04/10/25 00:12 Radiology Impressions Chest X-Ray 04/10/25 00:59 IMPRESSION: No acute cardiopulmonary findings. Gallbladder Ultrasound 04/10/25 02:11 IMPRESSION: 1. Moderate amount of dependent sludge with probable small stones within the gallbladder. Mild gallbladder wall thickening up to 0.4 cm. Questionable trace pericholecystic fluid. Development Professional reports a positive sonographic Robert's sign. These findings are compatible with acute calculus cholecystitis. 2. Common bile duct is mildly dilated up to 0.9 cm. 3. Small echogenic focus in the right kidney midportion, measuring up to 0.7 cm. This may be artifactual or may represent a small nonobstructing nephrolith. 4. Liver demonstrates diffuse hyperechoic echogenicity. This is most consistent with hepatic steatosis. Cholangiopancreatography MRI 04/10/25 04:58 IMPRESSION: 1. Mild gallbladder hydrops with stones and a small amount of adjacent fluid consistent with acute cholecystitis. 2. No filling defects are noted within the common bile duct. Common bile duct is measuring just greater than normal at 6.7 mm. 3. Normal variant anatomy of the common bile duct. There is a duplicated common bile duct through a portion of the pancreatic head. This is probably normal variant common bile duct which needs to be further evaluated by ERCP or known prior to surgery. This also could potentially be an elongated cystic duct. The smaller lumen of the common bile duct extends lateral and posterior to the gallbladder. This branch extends toward the gallbladder and could be entering a RIGHT hepatic duct. Laboratory Results WBC 8.66 10^3/uL (3.29-11.43) 04/10/25 00:12 RBC 4.35 10^6/uL (3.85-5.65) 04/10/25 00:12 Hgb 12.90 g/dL (11.27-16.99) 04/10/25 00:12 Hct 38.8 % (36-47) 04/10/25 00:12 MCV 89.2 fl (85-98) 04/10/25 00:12 MCH 29.7 pg (27-33) 04/10/25 00:12 MCHC 33.2 g/dL (30-55) 04/10/25 00:12 RDW 13.5 % (12.1-15.1) 04/10/25 00:12 Plt Count 265 10^3/cmm (157-399) 04/10/25 00:12 MPV 10.0 fL (7.4-10.4) 04/10/25 00:12 Neut % (Auto) 62.6 % 04/10/25 00:12 Lymph % (Auto) 25.6 % 04/10/25 00:12 [place] % (Auto) 7.7 % 04/10/25 00:12 Eos % (Auto) 3.2 % 04/10/25 00:12 Baso % (Auto) 0.8 % 04/10/25 00:12 Neut # (Auto) 5.41 10^3/uL (1.8-7.7) 04/10/25 00:12 Lymph # (Auto) 2.2 10^3/uL (0.8-4.8) 04/10/25 00:12 [place] # (Auto) 0.7 10^3/uL (0.2-0.9) 04/10/25 00:12 Eos # (Auto) 0.3 10^3/uL (0.0-0.8) 04/10/25 00:12 Baso # (Auto) 0.1 10^3/uL (0.0-0.1) 04/10/25 00:12 Nucleated RBC % (auto) 0 % 04/10/25 00:12 Nucleated RBCs # 0.0 /100WBC 04/10/25 00:12 Sodium 140 mmol/L (136-145) 04/10/25 00:12 Potassium 3.9 mmol/L (3.5-5.1) 04/10/25 00:12 Chloride 101 mmol/L (98-107) 04/10/25 00:12 Carbon Dioxide 25 mmol/L (22-29) 04/10/25 00:12 Anion Gap 17.9 (5-19) 04/10/25 00:12 BUN 18 mg/dL (8-23) 04/10/25 00:12 Creatinine 1.0 mg/dL (0.5-0.9) H 04/10/25 00:12 GFR Calculation Not Reportable 04/10/25 00:12 Glucose 103 mg/dL (65-115) 04/10/25 00:12 Calculated Osmolality 292 mOsm/kg (285-295) 04/10/25 00:12 Calcium 9.6 mg/dL (8.5-10.5) 04/10/25 00:12 Total Bilirubin 1.3 mg/dL (0.15-1.2) H 04/10/25 00:12 AST 26 U/L (0-32) 04/10/25 00:12 ALT 21 U/L (0-33) 04/10/25 00:12 Alkaline Phosphatase 122 U/L (35-105) H 04/10/25 00:12 Troponin T Baseline 10 ng/L (0-10) 04/10/25 00:12 Troponin T 120 Minute 9.82 ng/L (0-10) 04/10/25 03:04 Delta Troponin T -0.18 ABS# (0-10) L 04/10/25 03:04 Troponin T Hi Sens 6Hr 9.27 ng/L (0-10) 04/10/25 08:27 Troponin T Hi Sens 6Hr Delta -0.73 ng/L (0-12) L 04/10/25 08:27 NT-Pro-B Natriuret Pep 65 pg/mL (0-450) 04/10/25 00:12 Total Protein 6.6 g/dL (6.6-8.7) 04/10/25 00:12 Albumin 4.2 g/dL (3.5-5.2) 04/10/25 00:12 Globulin 2.4 g/dL (1.3-4.6) 04/10/25 00:12 Lipase 20 U/L (13-60) 04/10/25 00:12 XR interpretation done by ED provider, pending radiology final review Discharge Plan Discharge Patient Disposition: Admitted As Inpatient Clinical Impression: Acute calculous cholecystitis, Congenital duplication of biliary duct Condition: Fair Sign Out Sign Out Data: Patient Sign Out occurred on 04/10/25 at 07:23. Patient's care was discussed, and care was transferred from Yuri Kendrick DO to Terrance Dotson DO. Coding Level of Care Code ED Spectral Scientist for Chg Fwd Documented by User: Terrance Dotson DO 04/10/25 14:51 HPI - Chest Pain General: Chief Complaint: Chest Pain Stated Complaint: Cold Sweats\Chest Pains\N\V Time Seen by Provider: 04/10/25 01:09 Related Data Home Medications ?Medication ?Instructions ?Recorded ?Confirmed albuterol sulfate 90 mcg/actuation 2 puff inhalation Q6H PRN 01/22/21 04/10/25 aerosol inhaler Shortness Of Breath atorvastatin 40 mg tablet 40 mg PO BEDTIME 04/10/25 04/10/25 calcium 600 mg (as 1 tab PO DAILY 04/10/25 04/10/25 carbonate)-vitamin D3 5 mcg (200 unit) tablet lactobacillus combination no.4 3 3,000 mmu cells PO DAILY 04/10/25 04/10/25 billion cell capsule (Probiotic) mirabegron 50 mg tablet,extended 50 mg PO DAILY 04/10/25 04/10/25 release 24 hr (Myrbetriq) omeprazole 40 mg capsule,delayed 40 mg PO BEDTIME 04/10/25 04/10/25 release semaglutide (weight loss) 0.25 0.25 mg SUBCUT Q7D 04/10/25 04/10/25 mg/0.5 mL subcutaneous pen injector (Wegovy) turmeric root extract 300 mg 300 mg PO BID 04/10/25 04/10/25 capsule Previous Rx's ?Medication ?Instructions ?Recorded estradiol 1 mg tablet 1 mg PO DAILY@0700 #30 tabs 10/14/22 Allergies Allergy/AdvReac Type Severity Reaction Status Date / Time Penicillins Allergy ALGY-Difficulty Verified 04/10/25 00:59 Breathing PFSH ED PFSH: Medical History No pertinent family history Pelvic fracture Social History Smoking and tobacco/nicotine status: former use of tobacco/nicotine Physical Exam Neuro: FLORIAN COMA SCALE: document GCS findings Florian coma scale total score: 15 Course Vital Signs: Vital signs: Vital Signs Temperature 97.8 F 04/10/25 00:48 Pulse Rate 61 04/10/25 14:49 Respiratory Rate 20 H 04/10/25 09:30 Blood Pressure 151/80 04/10/25 14:49 Pulse Oximetry 100 04/10/25 14:49 Oxygen Delivery Me thod Room Air 04/10/25 14:49 Oxygen Flow Rate 2 04/10/25 09:45 MDM - Chest Pain Medical Decision Making Pain is improved after morphine and GI cocktail. CBC is normal. BMP is not remarkable. Lipase is normal. Bilirubin is 1.3, alk phos is 122. No other abnormal findings. Chest x-ray is negative. Right upper quadrant ultrasound is pending. Right upper quadrant ultrasound shows cholecystitis with stones. Common bile duct is mildly dilated. Spoke with surgery. Recommendations are IV antibiotics, MRCP this morning when available, reevaluation at that point. MRCP shows anatomical variation of the common bile duct and possibly cystic duct. Dr. Berg reviewed he does not feel that this can be managed here ultimately we were able to get her transferred to [place]. Will continue the IV antibiotics. Lab Data 04/10/25 00:12 04/10/25 00:12 Radiology Impressions Chest X-Ray 04/10/25 00:59 IMPRESSION: No acute cardiopulmonary findings. Gallbladder Ultrasound 04/10/25 02:11 IMPRESSION: 1. Moderate amount of dependent sludge with probable small stones within the gallbladder. Mild gallbladder wall thickening up to 0.4 cm. Questionable trace pericholecystic fluid. Development Professional reports a positive sonographic Robert's sign. These findings are compatible with acute calculus cholecystitis. 2. Common bile duct is mildly dilated up to 0.9 cm. 3. Small echogenic focus in the right kidney midportion, measuring up to 0.7 cm. This may be artifactual or may represent a small nonobstructing nephrolith. 4. Liver demonstrates diffuse hyperechoic echogenicity. This is most consistent with hepatic steatosis. Cholangiopancreatography MRI 04/10/25 04:58 IMPRESSION: 1. Mild gallbladder hydrops with stones and a small amount of adjacent fluid consistent with acute cholecystitis. 2. No filling defects are noted within the common bile duct. Common bile duct is measuring just greater than normal at 6.7 mm. 3. Normal variant anatomy of the common bile duct. There is a duplicated common bile duct through a portion of the pancreatic head. This is probably normal variant common bile duct which needs to be further evaluated by ERCP or known prior to surgery. This also could potentially be an elongated cystic duct. The smaller lumen of the common bile duct extends lateral and posterior to the gallbladder. This branch extends toward the gallbladder and could be entering a RIGHT hepatic duct. Laboratory Results WBC 8.66 10^3/uL (3.29-11.43) 04/10/25 00:12 RBC 4.35 10^6/uL (3.85-5.65) 04/10/25 00:12 Hgb 12.90 g/dL (11.27-16.99) 04/10/25 00:12 Hct 38.8 % (36-47) 04/10/25 00:12 MCV 89.2 fl (85-98) 04/10/25 00:12 MCH 29.7 pg (27-33) 04/10/25 00:12 MCHC 33.2 g/dL (30-55) 04/10/25 00:12 RDW 13.5 % (12.1-15.1) 04/10/25 00:12 Plt Count 265 10^3/cmm (157-399) 04/10/25 00:12 MPV 10.0 fL (7.4-10.4) 04/10/25 00:12 Neut % (Auto) 62.6 % 04/10/25 00:12 Lymph % (Auto) 25.6 % 04/10/25 00:12 [place] % (Auto) 7.7 % 04/10/25 00:12 Eos % (Auto) 3.2 % 04/10/25 00:12 Baso % (Auto) 0.8 % 04/10/25 00:12 Neut # (Auto) 5.41 10^3/uL (1.8-7.7) 04/10/25 00:12 Lymph # (Auto) 2.2 10^3/uL (0.8-4.8) 04/10/25 00:12 [place] # (Auto) 0.7 10^3/uL (0.2-0.9) 04/10/25 00:12 Eos # (Auto) 0.3 10^3/uL (0.0-0.8) 04/10/25 00:12 Baso # (Auto) 0.1 10^3/uL (0.0-0.1) 04/10/25 00:12 Nucleated RBC % (auto) 0 % 04/10/25 00:12 Nucleated RBCs # 0.0 /100WBC 04/10/25 00:12 Sodium 140 mmol/L (136-145) 04/10/25 00:12 Potassium 3.9 mmol/L (3.5-5.1) 04/10/25 00:12 Chloride 101 mmol/L (98-107) 04/10/25 00:12 Carbon Dioxide 25 mmol/L (22-29) 04/10/25 00:12 Anion Gap 17.9 (5-19) 04/10/25 00:12 BUN 18 mg/dL (8-23) 04/10/25 00:12 Creatinine 1.0 mg/dL (0.5-0.9) H 04/10/25 00:12 GFR Calculation Not Reportable 04/10/25 00:12 Glucose 103 mg/dL (65-115) 04/10/25 00:12 Calculated Osmolality 292 mOsm/kg (285-295) 04/10/25 00:12 Calcium 9.6 mg/dL (8.5-10.5) 04/10/25 00:12 Total Bilirubin 1.3 mg/dL (0.15-1.2) H 04/10/25 00:12 AST 26 U/L (0-32) 04/10/25 00:12 ALT 21 U/L (0-33) 04/10/25 00:12 Alkaline Phosphatase 122 U/L (35-105) H 04/10/25 00:12 Troponin T Baseline 10 ng/L (0-10) 04/10/25 00:12 Troponin T 120 Minute 9.82 ng/L (0-10) 04/10/25 03:04 Delta Troponin T -0.18 ABS# (0-10) L 04/10/25 03:04 Troponin T Hi Sens 6Hr 9.27 ng/L (0-10) 04/10/25 08:27 Troponin T Hi Sens 6Hr Delta -0.73 ng/L (0-12) L 04/10/25 08:27 NT-Pro-B Natriuret Pep 65 pg/mL (0-450) 04/10/25 00:12 Total Protein 6.6 g/dL (6.6-8.7) 04/10/25 00:12 Albumin 4.2 g/dL (3.5-5.2) 04/10/25 00:12 Globulin 2.4 g/dL (1.3-4.6) 04/10/25 00:12 Lipase 20 U/L (13-60) 04/10/25 00:12 Discharge Plan Discharge Patient Disposition: Admitted As Inpatient Clinical Impression: Acute calculous cholecystitis, Congenital duplication of biliary duct Condition: Fair Sign Out Sign Out Data: Patient Sign Out occurred on 04/10/25 at 07:23. Patient's care was discussed, and care was transferred from Yuri Kendrick DO to Terrance Dotson DO. Coding Level of Care Code ED Spectral Scientist for Tomas Ulloa
[2025-04-10 03:32] LABS: Troponin 5 2HR 9.82 ng/L (0-10)
[2025-04-10 03:38] LABS: Troponin 5 2HR Delta -0.18 ABS# (0-10)
--- NOTE | 2025-04-10 04:58 | MR_ITS ---
WS: [id number] MRCP (MAGNETIC RESONANCE CHOLANGIOPANCREATOGRAPHY) HISTORY: Right upper quadrant pain, CBD dilatation COMPARISON: RIGHT upper quadrant ultrasound 04/10/2025 TECHNIQUE: Multiple sequences are performed to evaluate the intra and extrahepatic ducts. Mild gallbladder hydrops. Transverse diameter of the gallbladder is just greater than 4 cm. There is a very small amount of pericholecystic fluid. Sludge and stones were noted within the gallbladder on the ultrasound. Small stones are noted by MRI. Common bile duct is just over normal at 6.7 mm in diameter. Variant anatomy of the common bile duct. Through the pancreatic head there is 2 separate common bile ducts which join at the ampulla of the bladder. The main branch extends superiorly towards the gallbladder as normally expected. There is a smaller branch that extends lateral and posterior to the gallbladder. This is a very small branch that extends towards the posterior gallbladder and may enter the intrahepatic duct system. No definite filling defects are noted within either branch. The pancreatic duct is normal. Liver and spleen are negative. No adrenal mass. No significant hepatic steatosis. Mild atherosclerosis aorta. Visualized kidneys are negative. No ascites. No pancreatitis. MR/MR MRCP [id number] IMPRESSION: 1. Mild gallbladder hydrops with stones and a small amount of adjacent fluid c onsistent with acute cholecystitis. 2. No filling defects are noted within the common bile duct. Common bile duct is measuring just greater than normal at 6.7 mm. 3. Normal variant anatomy of the common bile duct. There is a duplicated commo n bile duct through a portion of the pancreatic head. This is probably normal v ariant common bile duct which needs to be further evaluated by ERCP or known pr ior to surgery. This also could potentially be an elongated cystic duct. The sm aller lumen of the common bile duct extends lateral and posterior to the gallbl adder. This branch extends toward the gallbladder and could be entering a RIGHT hepatic duct.
[2025-04-10] MEDS: ciprofloxacin 400 MG/200 ML PREMIX 200 MG IV (05:55)
[2025-04-10] MEDS: metroNIDAZOLE IV 500 MG/100 ML PREMIX 100 MG IV (05:55)
--- NOTE | 2025-04-10 06:53 | PC.NURSE ---
PT TO [facility] @4168.
--- NOTE | 2025-04-10 08:26 | ECG_ITS ---
[facility] Date[facility] 2025-[facility]10 Pat Name: Paula Patel Department: Room: Gender: Female Radiology Director: : 1950 Requested By: Yuri Martin Order Number: [id number] Ephraim MD: Lizy Mortensen M.D. Measurements Intervals [place] Rate: 54 P: 64 MN: 191 QRS: 60 QRSD: 86 T: 63 QT: 456 QTc: 434 Interpretive Statements SINUS BRADYCARDIA Compared to ECG 04/10/2025 00:49:36 Sinus rhythm no longer present Electronically Signed On 04-10-2025 22:11:35 CDT by Lizy Mortensen M.D. [email or web address]
--- NOTE | 2025-04-10 08:40 | PM.CONSULT ---
Providers/Reason For Consult Consulting Physician/Specialty*: Dr. Berg general surgery Reason for Consult*: acute cholecystitis, duplicated common bile duct Primary Care Provider: Don Hubbard DO History of Present Illness History of Present Illness Paula Patel is a 75 year old female who presents with 12 hours of epigastric and right upper quadrant pain. Ultrasound consistent with acute cholecystitis. Due to common bile duct reported as 9 mm and T. bili of 1.3 additional workup with an MRCP was obtained. MRCP findings are most consistent with a duplicated common bile duct and a gallbladder which is draining most likely to the right hepatic duct. On my review of imaging it is difficult to elucidate her anatomy. It appears she has at least 1 common bile duct which is located anterior to the infundibulum of the gallbladder and another common bile duct posterior to the gallbladder. Medications/Allergies Home Medications ?Medication ?Instructions ?Recorded ?Confirmed ?Last Taken ?Type escitalopram oxalate 10 mg tablet 10 mg PO DAILY@0700 04/03/20 01/22/21 01/21/21 History omeprazole 20 mg capsule,delayed 20 mg PO DAILY@0700 04/03/20 01/22/21 01/21/21 History release tolterodine 1 mg tablet (Detrol) 1 mg PO DAILY 04/03/20 01/22/21 01/21/21 History Vitamin B-12 1 tab PO DAILY@0700 01/22/21 01/22/21 01/21/21 History albuterol sulfate 90 mcg/actuation See Rx Instructions .Route .COMPLEX 01/22/21 01/22/21 01/21/21 History aerosol inhaler ascorbic acid (vitamin C) 500 mg 500 mg PO DAILY@0700 01/22/21 01/22/21 01/21/21 History tablet nitrofurantoin 100 mg PO BID@0700,1900 01/22/21 01/22/21 01/22/21 History vitamin E 1 tab PO DAILY@0700 01/22/21 01/22/21 01/21/21 History ibuprofen 800 mg tablet 800 mg PO Q8H PRN pain #20 tabs 01/20/22 Unknown Rx methocarbamol 750 mg tablet 750 mg PO Q8H PRN Muscle spasms 01/20/22 Unknown Rx and pain #20 tabs estradiol 1 mg tablet 1 mg PO DAILY@0700 #30 tabs 10/14/22 Unknown Rx simvastatin 20 mg tablet 20 mg PO DAILY@0700 #30 tabs 01/28/23 Unknown Rx Allergies Allergy/AdvReac Type Severity Reaction Status Date / Time Penicillins Allergy ALGY-Difficulty Verified 04/10/25 00:59 Breathing PFSH Acute PFSH: Medical History No pertinent family history Pelvic fracture Social History Smoking and tobacco/nicotine status: former use of tobacco/nicotine Vitals/I&O/Wt Last Vital Signs Temp 97.8 F 04/10/25 00:48 Pulse 53 L 04/10/25 08:00 Resp 18 04/10/25 06:37 BP 184/78 04/10/25 08:00 Pulse Ox 99 04/10/25 08:00 O2 Del Method Nasal Cannula 04/10/25 08:00 O2 Flow Rate 2 04/10/25 08:00 04/09/25 04/10/25 04/10/25 22:59 06:59 14:59 Intake Total 200 / 200 Balance 200 / 200 Weight last 48 hrs Weight 186 lb Physical Exam Narrative: Chest: Unlabored breathing room air. No lymphadenopathy. Heart: Regular rate and rhythm. Abdomen: Soft, tender right upper quadrant, nondistended. No masses or lymphadenopathy. Data 04/10/25 00:12 04/10/25 00:12 A&P Assessment and plan (1) Acute calculous cholecystitis: (2) Congenital duplication of biliary duct: Plan 75-year-old female who presented with acute cholecystitis. Ultrasound showed a common duct of 9 mm and a T. bili of 1.3. MRCP pursued for this reason. MRCP showing aberrant anatomy with what looks like a duplicated common bile duct and a gallbladder that is draining to the right hepatic duct. Given this anatomy, patient should be managed at a higher level of care by a hepatobiliary team. We are not set up to perform intraoperative cholangiograms and we do not have staff that can assist with these more complicated procedures. PDMP PDMP Reviewed: Not Reviewed Coding Level of Care Code 44668 Diagnoses Acute calculous cholecystitis K80.00 Congenital duplication of biliary duct Q44.5
[2025-04-10 09:36] LABS: Troponin 5 6HR 9.27 ng/L (0-10)
[2025-04-10 09:37] LABS: Troponin 5 6HR Delta -0.73 ng/L (0-12)
[2025-04-10] MEDS: HYDROmorphone 0.5 MG/0.5 ML INJ IVP (09:43)
== END 2025-04-10 16:31 | disposition admitted as inpatient to this hospital (09) ==
PROVIDERS: Emergency Medicine; Emergency Provider Family Medicine; PCP Electrodiagnostic Medicine
DX: K80.00 Calculus of gallbladder with acute cholecystitis without obstruction (principal); Q44.5 Other congenital malformations of bile ducts; Z87.891 Personal history of nicotine dependence
CPT/HCPCS: 36415; 71045; 74181; 76705; 80053; 83690; 83880; 84484; 85025; 93005; 96365; 96366; 96367; 96375; 99285; J0744; J1171; J2270; J2405; J3490; J9999